=== PATIENT | female | born 1945 | race American Indian/Alaskan Native ===

== ENCOUNTER 2017-05-05 21:24 | Inpatient (IN) | payer MEDICAID, MEDICARE ==
--- NOTE | 2017-05-05 22:22 | Emergency Department Report ---
HPI - General Chief Complaint: Recheck/Abnormal Lab/Rx Time Seen by Provider: 05/05/17 22:09 - HPI HPI: Room 25 The patient is 71-year-old female presenting with a chief complaint of hyponatremia. The patient is a resident at [facility] states she had blood drawn today and was later instructed that her sodium was low. Patient was subsequently sent to ED. Patient denies any new complaints but states she's had loose stools for the past week. Patient complains of chronic pain in her right side for over one year. Patient otherwise denies any other complaints. Paperwork accompanying the patient reveals she had blood drawn 10/2017 which resulted with a sodium of 118 mmol/liter Location: [See above] Duration: [See above] Quality: Hyponatremia Severity: 118 Modifying factors: [see above] Context: [see above] Mode of transportation: [not driving] ED Past Medical Hx - Past Medical History Hx Hypertension: Yes Hx CVA: Yes Hx Diabetes: Yes Hx GERD: Yes Hx Psychiatric Treatment: Yes (schizophrenia, depression) - Surgical History Past Surgical History?: No Additional Surgical History: Lumpectomy - Family History Family history: no significant - Social History Smoking Status: Never Smoker ED Review of Systems ROS: Stated complaint: LOW SODIUM Other details as noted in HPI Gastrointestinal: diarrhea Physical Exam - Physical Exam Vital Signs: Vital Signs 05/05/17 22:07 Temperature 97.6 F Pulse Rate 71 Blood Pressure 126/71 Physical Exam: GENERAL: The patient is well-developed well-nourished female lying on stretcher not appearing to be in acute distress. [] HEENT: Normocephalic. Atraumatic. Extraocular motions are intact. Patient has moist mucous membranes. NECK: Supple. Trachea midline CHEST/LUNGS: Clear to auscultation. There is no respiratory distress noted. HEART/CARDIOVASCULAR: Regular. There is no tachycardia. There is no gallop rub or murmur. ABDOMEN: Abdomen is soft, nontender. Patient has normal bowel sounds. There is no abdominal distention. SKIN: There is no rash. There is no edema. There is no diaphoresis. NEURO: The patient is awake, alert, and oriented. The patient is cooperative. The patient has normal speech MUSCULOSKELETAL: There is no evidence of acute injury. ED Course Vital Signs 05/05/17 22:07 Temperature 97.6 F Pulse Rate 71 Blood Pressure 126/71 ED Medical Decision Making - Lab Data Result diagrams: 05/05/17 22:45 05/05/17 22:45 Laboratory Tests 05/05/17 05/05/17 22:45 22:45 WBC 8.1 RBC 3.61 L Hgb 11.9 Hct 34.9 MCV 97 MCH 33 H MCHC 34 RDW 15.2 Plt Count 208 Lymph % (Auto) 25.8 [place] % (Auto) 10.5 H Eos % (Auto) 0.5 Baso % (Auto) 0.9 Lymph # 2.1 [place] # 0.9 H Eos # 0.0 Baso # 0.1 Seg Neutrophils % 62.3 Seg Neutrophils # 5.1 Sodium 122 L Potassium 4.2 Chloride 79.0 L Carbon Dioxide 26 Anion Gap 21 BUN 13 Creatinine 1.0 Estimated GFR > 60 BUN/Creatinine Ratio 13 Glucose 92 Calcium 9.2 Total Bilirubin 0.20 AST 12 ALT 7 Alkaline Phosphatase 58 Total Protein 7.1 Albumin 3.9 Albumin/Globulin Ratio 1.2 - EKG Data -: EKG Interpreted by Mo EKG shows normal: sinus rhythm Rate: normal - EKG Data When compared to previous EKG there are: previous EKG unavailable Interpretation: other (no ischemic changes seen) - Differential Diagnosis hyponatremia Critical care attestation.: If time is entered above; I have spent that time in minutes in the direct care of this critically ill patient, excluding procedure time. ED Disposition Clinical Impression: Hyponatremia Disposition: OP ADMIT IP TO THIS HOSP Is pt being admited?: Yes Does the pt Need Aspirin: No Condition: Fair Referrals: PRIMARY CARE,MD [Primary Care Provider] - 3-5 Days Time of Disposition: 00:02 (hospitalist paged (Dr Weems))
[2017-05-05 23:15] LABS: Basophils # (Auto) 0.1 K/mm3 (0.0-0.1); Basophils % (Auto) 0.9 % (0.0-1.8); Eosinophils % (Auto) 0.5 % (0.0-4.3); Hematocrit 34.9 % (30.3-42.9); Hemoglobin 11.9 gm/dl (10.1-14.3); Lymphocytes # (Auto) 2.1 K/mm3 (1.2-5.4); Lymphocytes % (Auto) 25.8 % (13.4-35.0); Mean Corpuscular HGB Conc 34 % (30-34); Mean Corpuscular Hemoglobin 33 pg (28-32); Mean Corpuscular Volume 97 fl (79-97); Monocytes # (Auto) 0.9 K/mm3 (0.0-0.8); Monocytes % (Auto) 10.5 % (0.0-7.3); Platelet Count 208 K/mm3 (140-440); Red Blood Count 3.61 M/mm3 (3.65-5.03); Red Cell Distribution Width 15.2 % (13.2-15.2)
[2017-05-05 23:25] LABS: Alanine Aminotransferase 7 units/L (7-56); Albumin 3.9 g/dL (3.9-5); BUN/Creatinine Ratio 13; Blood Urea Nitrogen 13 mg/dL (7-17); Calcium 9.2 mg/dL (8.4-10.2); Hemolysis Index 11
[2017-05-06] MEDS ORDERED: NACL 0.9% 1000 ML 1,000 ML IV ONE
[2017-05-06 01:03] LABS: Bilirubin,Urine NEG (Negative); Blood,Urine NEG (Negative); Color,Urine Yellow (Yellow); Hyaline Casts,Urine 1 /LPF; Nitrite,Urine NEG (Negative); Protein,Urine <15 mg/dL mg/dL (Negative); WBC,Urine < 1.0 /HPF (0.0-6.0)
--- NOTE | 2017-05-06 02:45 | History and Physical Report ---
History of Present Illness Date of examination: 05/06/17 Date of admission: 05/06/17 00:21 Chief complaint: My sodium level is low History of present illness: 71-year-old -[place] female with past medical history significant for hypertension, diabetes mellitus, schizophrenia presented [facility] further complaints of hyponatremia. Patient didn't have any complaints. Blood work was done today and her sodium level was found to be 118 and then to [facility] ER. Patient denied nausea, vomiting, but admits that she had one episode of loose stool this morning. Patient denied drinking too much water. Patient denied chest pain, shortness of breath, fever, chills, palpitation. REVIEW OF SYSTEMS: GENERAL: no weight change, no fatigue, no fever HEAD: no head ache EYES: no blurry vision, no acute visual loss EARS: no hearing loss, no discharge, no earache NOSE: no stuffiness, no sneezing, no discharge MOUTH, THROAT AND NECK: no bleeding gums, no sore throat, no swollen neck CARDIAC: no palpitations, no dyspnea on exertion, no orthopnea, no PND, no edema , no chest pain RESPIRATORY: no shortness of breath, no wheeze, no cough, no sputum, no hemoptysis, no asthma GI: no decreased appetite, no nausea, no vomiting, no dysphagia, no diarrhea, no constipation, no abdominal pain URINARY: no change in frequency, no urgency, no polyuria, no hematuria, no incontinence MUSCULOSKELETAL: no muscle weakness, no pain, no joint stiffness NEUROLOGIC: no loss of sensation/numbness, no tingling, no tremors, no weakness/ paralysis HEMATOLOGIC: no anemia, no easy bruising SKIN: no rashes ENDOCRINE: no heat/cold intolerance, no polyuria, no polydipsia, no thyroid problems, + diabetes PSYCHIATRIC: no anxiety, no depression, no suicidal ideations Past History Past Medical History: diabetes, hypertension, other (schizophrenia) Past Surgical History: Other (lumpectomy, breast) Social history: full code. denies: smoking, alcohol abuse, prescription drug abuse, IV drug use Family history: no significant family history Medications and Allergies Allergies Allergy/AdvReac Type Severity Reaction Status Date / Time haloperidol [From Haldol] Allergy Unknown Verified 05/25/16 11:00 haloperidol lactate Allergy Unknown Verified 05/25/16 11:00 [From Haldol] Penicillins Allergy Unknown Verified 05/25/16 11:00 Active Meds: Active Medications Sodium Chloride (Nacl 0.9% 1000 Ml) 1,000 mls @ 125 mls/hr IV ONCE ONE Stop: 05/06/17 07:59 Last Admin: 05/06/17 00:10 Dose: 125 mls/hr Exam - Physical Exam Narrative exam: Not in cardiopulmonary distress. The patient appeared well nourished and normally developed. BMI in the chart is inaccurate. Vital signs as documented. Head exam is unremarkable. No scleral icterus . Neck is without jugular venous distension, thyromegaly, or carotid bruits. Lungs are clear to auscultation. Cardiac exam reveals regular rate and Rhythm. First and second heart sounds normal. No murmurs, rubs or gallops. Abdominal exam reveals normal bowel sounds, no masses, no organomegaly and no aortic enlargement. Extremities are nonedematous and both femoral and pedal pulses are normal. HAND UMBRELLA TIPPER: Alert and oriented 3. No focal weakness. - Constitutional Vitals: Temp Pulse Resp BP Pulse Ox 97.6 F 71 126/71 05/05/17 22:07 05/05/17 22:07 05/05/17 22:07 Results - Labs CBC & Chem 7: 05/05/17 22:45 05/05/17 22:45 Labs: Laboratory Last Values WBC 8.1 K/mm3 (4.5-11.0) 05/05/17 22:45 RBC 3.61 M/mm3 (3.65-5.03) L 05/05/17 22:45 Hgb 11.9 gm/dl (10.1-14.3) 05/05/17 22:45 Hct 34.9 % (30.3-42.9) 05/05/17 22:45 MCV 97 fl (79-97) 05/05/17 22:45 MCH 33 pg (28-32) H 05/05/17 22:45 MCHC 34 % (30-34) 05/05/17 22:45 RDW 15.2 % (13.2-15.2) 05/05/17 22:45 Plt Count 208 K/mm3 (140-440) 05/05/17 22:45 Lymph % (Auto) 25.8 % (13.4-35.0) 05/05/17 22:45 [place] % (Auto) 10.5 % (0.0-7.3) H 05/05/17 22:45 Eos % (Auto) 0.5 % (0.0-4.3) 05/05/17 22:45 Baso % (Auto) 0.9 % (0.0-1.8) 05/05/17 22:45 Lymph # 2.1 K/mm3 (1.2-5.4) 05/05/17 22:45 [place] # 0.9 K/mm3 (0.0-0.8) H 05/05/17 22:45 Eos # 0.0 K/mm3 (0.0-0.4) 05/05/17 22:45 Baso # 0.1 K/mm3 (0.0-0.1) 05/05/17 22:45 Seg Neutrophils % 62.3 % (40.0-70.0) 05/05/17 22:45 Seg Neutrophils # 5.1 K/mm3 (1.8-7.7) 05/05/17 22:45 Sodium 122 mmol/L (137-145) L 05/05/17 22:45 Potassium 4.2 mmol/L (3.6-5.0) 05/05/17 22:45 Chloride 79.0 mmol/L (98-107) L 05/05/17 22:45 Carbon Dioxide 26 mmol/L (22-30) 05/05/17 22:45 Anion Gap 21 mmol/L 05/05/17 22:45 BUN 13 mg/dL (7-17) 05/05/17 22:45 Creatinine 1.0 mg/dL (0.7-1.2) 05/05/17 22:45 Estimated GFR > 60 ml/min 05/05/17 22:45 BUN/Creatinine Ratio 13 % 05/05/17 22:45 Glucose 92 mg/dL (65-100) 05/05/17 22:45 Calcium 9.2 mg/dL (8.4-10.2) 05/05/17 22:45 Total Bilirubin 0.20 mg/dL (0.1-1.2) 05/05/17 22:45 AST 12 units/L (5-40) 05/05/17 22:45 ALT 7 units/L (7-56) 05/05/17 22:45 Alkaline Phosphatase 58 units/L (35-129) 05/05/17 22:45 Total Protein 7.1 g/dL (6.3-8.2) 05/05/17 22:45 Albumin 3.9 g/dL (3.9-5) 05/05/17 22:45 Albumin/Globulin Ratio 1.2 % 05/05/17 22:45 Urine Color Yellow (Yellow) 05/05/17 23:56 Urine Turbidity Clear (Clear) 05/05/17 23:56 Urine pH 6.0 (5.0-7.0) 05/05/17 23:56 Ur Specific [place] 1.012 (1.003-1.030) 05/05/17 23:56 Urine Protein <15 mg/dl mg/dL (Negative) 05/05/17 23:56 Urine Glucose (UA) Neg mg/dL (Negative) 05/05/17 23:56 Urine Ketones Neg mg/dL (Negative) 05/05/17 23:56 Urine Blood Neg (Negative) 05/05/17 23:56 Urine Nitrite Neg (Negative) 05/05/17 23:56 Urine Bilirubin Neg (Negative) 05/05/17 23:56 Urine Urobilinogen 2.0 mg/dL (<2.0) 05/05/17 23:56 Ur Leukocyte Esterase Neg (Negative) 05/05/17 23:56 Urine WBC (Auto) < 1.0 /HPF (0.0-6.0) 05/05/17 23:56 Urine RBC (Auto) 2.0 /HPF (0.0-6.0) 05/05/17 23:56 U Epithel Cells (Auto) < 1.0 /HPF (0-13.0) 05/05/17 23:56 Hyaline Casts 1 /LPF 05/05/17 23:56 Assessment and Plan Assessment and plan: Hyponatremia - Causes unknown, IV normal saline, nephrology consulted and recommended to repeat BMP, magnesium and phosphorous in the morning - Patient is asymptomatic Diabetes mellitus type 2 - Patient's blood sugar is well controlled without medications Hypertension controlled Schizophrenia - Patient's medications was not reconciled because of medications are not in the chart and I called the nurse to put in. DVT prophylaxis - Heparin Disposition - Admit to medical floor Advance Directives: Yes VTE prophylaxis?: Chemical Plan of care discussed with patient/family: Yes
[2017-05-06 05:11] LABS: BUN/Creatinine Ratio 13; Blood Urea Nitrogen 12 mg/dL (7-17); Calcium 8.9 mg/dL (8.4-10.2); Hemolysis Index 19
--- NOTE | 2017-05-06 08:47 | Consultation ---
History of Present Illness - Reason for Consult Consult date: 05/06/17 hyponatremia - History of Present Illness The patient is a 71-year-old AAF with past medical history significant for Hypertension, Type 2 diabetes mellitus, Obesity and Schizophrenia presented from [facility] for further evaluation of Hyponatremia. Blood work was done yesterday and her sodium level was found to be 118. Initial Sodium level was 122 inthe ER. Patient denies any h/o N, V, dizziness, CP or SOB. Patient denied drinking too much water. Patient was taking HCTZ at the [place]. She was treated for hyponatremia about a year ago. Past History Past Medical History: diabetes, hypertension, other (schizophrenia) Past Surgical History: Other (lumpectomy, breast) Social history: full code. denies: smoking, alcohol abuse, prescription drug abuse, IV drug use Family history: no significant family history Medications and Allergies Allergies Allergy/AdvReac Type Severity Reaction Status Date / Time haloperidol [From Haldol] Allergy Unknown Verified 05/25/16 11:00 haloperidol lactate Allergy Unknown Verified 05/25/16 11:00 [From Haldol] Penicillins Allergy Unknown Verified 05/25/16 11:00 Home Medications Medication Instructions Recorded Confirmed Last Taken Type Omeprazole Magnesium 20 mg PO HS 05/06/17 05/06/17 Unknown History Pravastatin Sodium [Pravachol] 40 mg PO HS 05/06/17 05/06/17 Unknown History Sennosides [Senna] 8.6 mg PO QHS 05/06/17 05/06/17 Unknown History Sertraline [Zoloft] 50 mg PO DAILY 05/06/17 05/06/17 Unknown History traMADol [Ultram] 50 mg PO PRN 05/06/17 05/06/17 Unknown History Active Meds: Active Medications Heparin Sodium (Porcine) (Heparin) 5,000 unit SUB-Q Q12HR DARLINE Hydralazine HCl (Apresoline) 5 mg IV Q30MIN PRN PRN Reason: Hypertension Dextrose/Sodium Chloride (D5ns) 1,000 mls @ 75 mls/hr IV DIRECT DARLINE Pantoprazole Sodium (Protonix) 40 mg IV QDAY DARLINE Review of Systems Constitutional: no weight loss, no weight gain, no fever, no chills, no anorexia Ears, nose, mouth and throat: no epistaxis Breasts: deferred Cardiovascular: high blood pressure, no chest pain, no orthopnea, no palpitations, no edema, no syncope, no lightheadedness, no shortness of breath, no leg edema Respiratory: no cough, no hemoptysis, no shortness of breath Gastrointestinal: no abdominal pain, no nausea, no vomiting, no melena Genitourinary Female: no dysuria, no hematuria Rectal: no bleeding Musculoskeletal: no redness of joints Integumentary: no rash, no sores, no wounds Neurological: no paralysis, no weakness, no seizures, no syncope, no tremors, no ataxia, no double vision, no loss of vision Psychiatric: no disorientation Endocrine: no excessive thirst, no polydipsia, no polyuria, no nocturia Hematologic/Lymphatic: no easy bleeding Exam - Vital Signs Vital signs: Vital Signs Pulse Resp Pulse Ox 93 H 25 H 97 05/05/17 22:01 05/05/17 22:01 05/05/17 22:01 - General Appearance General appearance: well-developed, well-nourished, appears stated age, obese, other (no distress) EENT: ATNC, PERRL, mucous membranes dry, hearing intact, vision intact Neck: Present: neck supple, trachea midline Respiratory: Clear to Ascultation Heart: regular, S1S2, no murmurs Gastrointestinal: Present: normoactive bowel sounds, obese. Absent: tenderness , distended Integumentary: no rash, warm and dry Neurologic: no focal deficit, no asterixis, alert and oriented x3 Musculoskeletal: Present: other (no edema) Psychiatric: mood/affect appropriate, cooperative Results - Lab Results 05/05/17 22:45 05/06/17 04:20 Most recent lab results Calcium 8.9 mg/dL (8.4-10.2) 05/06/17 04:20 Phosphorus 2.80 mg/dL (2.5-4.5) 05/06/17 04:20 Magnesium 1.20 mg/dL (1.7-2.3) L 05/06/17 04:20 Assessment and Plan 1. Hyponatremia: Hyponatremia likely secodnary to HCTZ. Continue IV NS. Monitor Sodium levels. Patient is also on Zoloft. 2. Hypomagnesemia: Replete Mg. 3. Hypertension. 4. Schizophrenia.
[2017-05-06] MEDS ORDERED: APRESOLINE IV PRN (09:00)
[2017-05-06] MEDS: HEPARIN SUB-Q SCH ×2 (09:23→22:35)
[2017-05-06] MEDS: D5NS 1,000 ML IV SCH (09:24)
[2017-05-06] MEDS ORDERED: MAGNESIUM SULFATE 4GM/100ML 4 GM/100 ML BAG IV ONE (10:00)
[2017-05-06] MEDS: PROTONIX IV SCH (10:17)
[2017-05-06] MEDS ORDERED: WATER FOR INJ (PF) 10 ML ONE (10:25)
--- NOTE | 2017-05-06 14:49 | Progress Note ---
Assessment and Plan Hyponatremia - likely from hypovolumia and low salt intake - cont IV fluid with d5NS, Na level 126 today - Patient is asymptomatic Diabetes mellitus type 2 - Patient's blood sugar is well controlled without medications - will place on SSI and will treat if BG >150 - ADa diet if pass the swallow study Hypertension controlled - cont home meds Schizophrenia - stable at baseline DVT prophylaxis - Heparin Disposition - back to SNF when stable Brief history: The patient is a 71-year-old AAF with past medical history significant for Hypertension, Type 2 diabetes mellitus, Obesity and Schizophrenia presented from [facility] for further evaluation of Hyponatremia. Blood work was done yesterday and her sodium level was found to be 118. Initial Sodium level was 122 inthe ER. Hospitalist Physical exam: GENERAL: well-developed morbidly obese -[place] female lying on bed appeared to be in no discomfort. HEENT: Normocephalic. Atraumatic. No conjunctival congestion or icterus. Patient has moist mucous membranes. NECK: Supple. Trachea midline. CHEST/LUNGS: Clear to auscultated bilaterally, breathing nonlabored. No wheezes crackles or rhonchi. HEART/CARDIOVASCULAR: Regular in rate and rhythm. S1 and S2 positive. ABDOMEN: Abdomen is soft, nontender. Patient has normal bowel sounds. SKIN: There is no rash. Warm and dry. NEURO: No focal motor deficit. Follows command. MUSCULOSKELETAL: No joint effusion or tenderness. EXTRIMITY: No edema, no cyanosis or clubbing. PSYCH: Cooperative. Subjective Date of service: 05/06/17 Interval history: Patient seen and examined. Medical records and medication list reviewed. No acute event overnight noted by the RN. Patient denies any chest pain or difficulty breathing. Patient is tolerating diet. Discussed plan of care at bedside with patient. Objective - Constitutional Vitals: Vital Signs - 12hr 05/06/17 05/06/17 05/06/17 03:27 04:15 07:57 Temperature 98.2 F 98.3 F Pulse Rate 69 Respiratory 18 18 18 Rate Blood Pressure 158/64 Blood Pressure 147/75 [Left] O2 Sat by Pulse 98 100 Oximetry 05/06/17 12:53 Temperature 98.5 F Pulse Rate 71 Respiratory 20 Rate Blood Pressure Blood Pressure 130/78 [Left] O2 Sat by Pulse 99 Oximetry - Labs CBC & Chem 7: 05/05/17 22:45 05/08/17 03:17 Labs: Abnormal lab results 05/05/17 05/05/17 05/06/17 Range/Units 22:45 22:45 04:20 RBC 3.61 L (3.65-5.03) M/mm3 MCH 33 H (28-32) pg [place] % (Auto) 10.5 H (0.0-7.3) % [place] # 0.9 H (0.0-0.8) K/mm3 Sodium 122 L 123 L (137-145) mmol/L Chloride 79.0 L 80.9 L (98-107) mmol/L POC Glucose (70-105) Magnesium 1.20 L (1.7-2.3) mg/dL 05/06/17 Range/Units 11:57 RBC (3.65-5.03) M/mm3 MCH (28-32) pg [place] % (Auto) (0.0-7.3) % [place] # (0.0-0.8) K/mm3 Sodium (137-145) mmol/L Chloride (98-107) mmol/L POC Glucose 125 H (70-105) Magnesium (1.7-2.3) mg/dL
[2017-05-06 15:26] LABS: BUN/Creatinine Ratio 10; Blood Urea Nitrogen 8 mg/dL (7-17); Calcium 9.2 mg/dL (8.4-10.2); Hemolysis Index 4
[2017-05-06] MEDS ORDERED: CEPHULAC PO ONE (20:22)
[2017-05-06] MEDS: DILAUDID IV PRN (22:35)
[2017-05-06] MEDS: ZOFRAN IV PRN (22:35)
[2017-05-07 05:47] LABS: Alanine Aminotransferase 7 units/L (7-56); Albumin 3.8 g/dL (3.9-5); BUN/Creatinine Ratio 10; Blood Urea Nitrogen 9 mg/dL (7-17); Calcium 9.1 mg/dL (8.4-10.2); Hemolysis Index 17
--- NOTE | 2017-05-07 09:46 | Progress Note ---
Assessment and Plan 1. Hyponatremia: Hyponatremia likely secodnary to HCTZ. sodium level has improved. Continue IV fluids. Monitor Sodium level. Avoid HCTZ. 2. Hypomagnesemia: Improved. 3. Hypertension. 4. Schizophrenia. Subjective Date of service: 05/07/17 Interval history: Patient is doing ok. Objective - Vital Signs Vital signs: Vital Signs - 12hr 05/06/17 05/06/17 05/07/17 22:00 22:35 04:21 Temperature 98.7 F 98.9 F Pulse Rate 74 62 Respiratory 20 20 18 Rate Blood Pressure 139/66 Blood Pressure 148/72 [Left] O2 Sat by Pulse 94 94 Oximetry 05/07/17 05/07/17 07:33 08:43 Temperature 97.5 F L Pulse Rate 67 Respiratory 20 20 Rate Blood Pressure 137/62 Blood Pressure [Left] O2 Sat by Pulse 97 Oximetry - General Appearance General appearance: well-developed, well-nourished, appears stated age, obese, other (no distress) EENT: ATNC, PERRL, hearing intact Neck: supple Respiratory: Present: Clear to Ascultation Cardiology: regular, S1S2, no murmurs Gastrointestinal: normoactive bowel sounds, no tenderness, no distended, obese Integumentary: no rash, warm and dry Neurologic: no focal deficit, no asterixis Musculoskeletal: other (no edema) Psychiatric: mood/affect appropriate, cooperative - Lab 05/05/17 22:45 05/07/17 04:35 Most recent lab results Calcium 9.1 mg/dL (8.4-10.2) 05/07/17 04:35 Phosphorus 2.80 mg/dL (2.5-4.5) 05/06/17 04:20 Magnesium 2.20 mg/dL (1.7-2.3) 05/07/17 04:35
[2017-05-07] MEDS: PROTONIX IV SCH (10:33)
[2017-05-07] MEDS: HEPARIN SUB-Q SCH ×2 (10:34→22:21)
[2017-05-07] MEDS: D5NS 1,000 ML IV SCH (12:51)
--- NOTE | 2017-05-07 15:12 | Progress Note ---
Assessment and Plan - Patient Problems (1) Hyponatremia Current Visit: Yes Status: Acute Plan to address problem: Hyponatremia has improved significantly with discontinuation of hydrochlorothiazide most likely etiology. Sodium is coming back to 1:30. If he continues improved tomorrow or discharge chem monitor electrolytes and mcc. (2) Altered mental status Current Visit: No Status: Acute Plan to address problem: Well-known to me at baseline. Was most likely secondary to hyponatremia for her encephalopathy. But has resolved. 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 History Interval history: Patient states she feels better stronger all questions answered. Patient well known to myself from nursing facility. At baseline. Hospitalist Physical - Constitutional Vitals: Temp Pulse Resp BP Pulse Ox 97.5 F L 67 20 137/62 97 05/07/17 07:33 05/07/17 07:33 05/07/17 08:43 05/07/17 07:33 05/07/17 07:33 General appearance: Present: no acute distress - EENT Eyes: Present: PERRL, EOM intact ENT: hearing intact, clear oral mucosa - Neck Neck: Present: supple, normal ROM - Respiratory Respiratory: bilateral: CTA - Cardiovascular Rhythm: regular Heart Sounds: Present: S1 & S2 - Extremities Extremities: no ischemia, pulses intact, pulses symmetrical, No edema Peripheral Pulses: within normal limits - Abdominal General gastrointestinal: soft, non-tender, non-distended, other (obese) - Psychiatric Psychiatric: intact judgment & insight, cooperative - Neurologic Neurologic: CNII-XII intact Results - Labs CBC & Chem 7: 05/05/17 22:45 05/07/17 04:35 Labs: Laboratory Last Values WBC 8.1 K/mm3 (4.5-11.0) 05/05/17 22:45 RBC 3.61 M/mm3 (3.65-5.03) L 05/05/17 22:45 Hgb 11.9 gm/dl (10.1-14.3) 05/05/17 22:45 Hct 34.9 % (30.3-42.9) 05/05/17 22:45 MCV 97 fl (79-97) 05/05/17 22:45 MCH 33 pg (28-32) H 05/05/17 22:45 MCHC 34 % (30-34) 05/05/17 22:45 RDW 15.2 % (13.2-15.2) 05/05/17 22:45 Plt Count 208 K/mm3 (140-440) 05/05/17 22:45 Lymph % (Auto) 25.8 % (13.4-35.0) 05/05/17 22:45 [place] % (Auto) 10.5 % (0.0-7.3) H 05/05/17 22:45 Eos % (Auto) 0.5 % (0.0-4.3) 05/05/17 22:45 Baso % (Auto) 0.9 % (0.0-1.8) 05/05/17 22:45 Lymph # 2.1 K/mm3 (1.2-5.4) 05/05/17 22:45 [place] # 0.9 K/mm3 (0.0-0.8) H 05/05/17 22:45 Eos # 0.0 K/mm3 (0.0-0.4) 05/05/17 22:45 Baso # 0.1 K/mm3 (0.0-0.1) 05/05/17 22:45 Seg Neutrophils % 62.3 % (40.0-70.0) 05/05/17 22:45 Seg Neutrophils # 5.1 K/mm3 (1.8-7.7) 05/05/17 22:45 Sodium 130 mmol/L (137-145) L 05/07/17 04:35 Potassium 4.8 mmol/L (3.6-5.0) 05/07/17 04:35 Chloride 90.4 mmol/L (98-107) L 05/07/17 04:35 Carbon Dioxide 24 mmol/L (22-30) 05/07/17 04:35 Anion Gap 20 mmol/L 05/07/17 04:35 BUN 9 mg/dL (7-17) 05/07/17 04:35 Creatinine 0.9 mg/dL (0.7-1.2) 05/07/17 04:35 Estimated GFR > 60 ml/min 05/07/17 04:35 BUN/Creatinine Ratio 10 % 05/07/17 04:35 Glucose 140 mg/dL (65-100) H 05/07/17 04:35 POC Glucose 153 (70-105) H 05/07/17 12:24 Uric Acid 4.0 mg/dL (3.5-7.6) 05/07/17 04:35 Calcium 9.1 mg/dL (8.4-10.2) 05/07/17 04:35 Phosphorus 2.80 mg/dL (2.5-4.5) 05/06/17 04:20 Magnesium 2.20 mg/dL (1.7-2.3) 05/07/17 04:35 Total Bilirubin 0.30 mg/dL (0.1-1.2) 05/07/17 04:35 AST 10 units/L (5-40) 05/07/17 04:35 ALT 7 units/L (7-56) 05/07/17 04:35 Alkaline Phosphatase 54 units/L (35-129) 05/07/17 04:35 Total Protein 6.8 g/dL (6.3-8.2) 05/07/17 04:35 Albumin 3.8 g/dL (3.9-5) L 05/07/17 04:35 Albumin/Globulin Ratio 1.3 % 05/07/17 04:35 TSH 1.630 mlU/mL (0.270-4.200) 05/06/17 08:21 Free T4 1.34 ng/dL (0.76-1.46) 05/06/17 08:14 Urine Color Yellow (Yellow) 05/05/17 23:56 Urine Turbidity Clear (Clear) 05/05/17 23:56 Urine pH 6.0 (5.0-7.0) 05/05/17 23:56 Ur Specific [place] 1.012 (1.003-1.030) 05/05/17 23:56 Urine Protein <15 mg/dl mg/dL (Negative) 05/05/17 23:56 Urine Glucose (UA) Neg mg/dL (Negative) 05/05/17 23:56 Urine Ketones Neg mg/dL (Negative) 05/05/17 23:56 Urine Blood Neg (Negative) 05/05/17 23:56 Urine Nitrite Neg (Negative) 05/05/17 23:56 Urine Bilirubin Neg (Negative) 05/05/17 23:56 Urine Urobilinogen 2.0 mg/dL (<2.0) 05/05/17 23:56 Ur Leukocyte Esterase Neg (Negative) 05/05/17 23:56 Urine WBC (Auto) < 1.0 /HPF (0.0-6.0) 05/05/17 23:56 Urine RBC (Auto) 2.0 /HPF (0.0-6.0) 05/05/17 23:56 U Epithel Cells (Auto) < 1.0 /HPF (0-13.0) 05/05/17 23:56 Hyaline Casts 1 /LPF 05/05/17 23:56
--- NOTE | 2017-05-07 17:15 | Progress Note ---
Subjective Date of service: 05/07/17 Objective - Constitutional Vitals: Vital Signs - 12hr 05/07/17 05/07/17 07:33 08:43 Temperature 97.5 F L Pulse Rate 67 Respiratory 20 20 Rate Blood Pressure 137/62 O2 Sat by Pulse 97 Oximetry - Labs CBC & Chem 7: 05/05/17 22:45 05/07/17 04:35 Labs: Abnormal lab results 05/06/17 05/06/17 05/07/17 Range/Units 16:46 22:06 04:35 Sodium 130 L (137-145) mmol/L Chloride 90.4 L (98-107) mmol/L Glucose 140 H (65-100) mg/dL POC Glucose 114 H 150 H (70-105) Albumin 3.8 L (3.9-5) g/dL 05/07/17 05/07/17 Range/Units 07:30 12:24 Sodium (137-145) mmol/L Chloride (98-107) mmol/L Glucose (65-100) mg/dL POC Glucose 157 H 153 H (70-105) Albumin (3.9-5) g/dL
--- NOTE | 2017-05-07 17:58 | Progress Note ---
Assessment and Plan Hyponatremia - likely from hypovolumia and low salt intake - cont IV normal saline, Na level 130 today - Patient is asymptomatic Diabetes mellitus type 2 - Patient's blood sugar is well controlled without medications - will place on SSI Hypertension controlled - cont home meds Schizophrenia - stable at baseline DVT prophylaxis - Heparin Disposition - back to SNF when stable Brief history: The patient is a 71-year-old AAF with past medical history significant for Hypertension, Type 2 diabetes mellitus, Obesity and Schizophrenia presented from [facility] for further evaluation of Hyponatremia. Blood work was done yesterday and her sodium level was found to be 118. Initial Sodium level was 122 inthe ER. Hospitalist Physical exam: GENERAL: well-developed morbidly obese -[place]ic female lying on bed appeared to be in no discomfort. HEENT: Normocephalic. Atraumatic. No conjunctival congestion or icterus. Patient has moist mucous membranes. NECK: Supple. Trachea midline. CHEST/LUNGS: Clear to auscultated bilaterally, breathing nonlabored. No wheezes crackles or rhonchi. HEART/CARDIOVASCULAR: Regular in rate and rhythm. S1 and S2 positive. ABDOMEN: Abdomen is soft, nontender. Patient has normal bowel sounds. SKIN: There is no rash. Warm and dry. NEURO: No focal motor deficit. Follows command. MUSCULOSKELETAL: No joint effusion or tenderness. EXTRIMITY: No edema, no cyanosis or clubbing. PSYCH: Cooperative. Subjective Date of service: 05/07/17 Interval history: Patient seen and examined. Medical records and medication list reviewed. No acute event overnight noted by the RN. Patient denies any chest pain or difficulty breathing. Patient is tolerating diet. Discussed plan of care at bedside with patient. Objective - Constitutional Vitals: Vital Signs - 12hr 05/07/17 05/07/17 07:33 08:43 Temperature 97.5 F L Pulse Rate 67 Respiratory 20 20 Rate Blood Pressure 137/62 O2 Sat by Pulse 97 Oximetry - Labs CBC & Chem 7: 05/05/17 22:45 05/08/17 03:17 Labs: Abnormal lab results 05/06/17 05/07/17 05/07/17 Range/Units 22:06 04:35 07:30 Sodium 130 L (137-145) mmol/L Chloride 90.4 L (98-107) mmol/L Glucose 140 H (65-100) mg/dL POC Glucose 150 H 157 H (70-105) Albumin 3.8 L (3.9-5) g/dL 05/07/17 Range/Units 12:24 Sodium (137-145) mmol/L Chloride (98-107) mmol/L Glucose (65-100) mg/dL POC Glucose 153 H (70-105) Albumin (3.9-5) g/dL
[2017-05-07] MEDS ORDERED: NACL 0.9% 1000 ML 1,000 ML IV SCH (18:30)
[2017-05-07] MEDS: DILAUDID IV PRN (23:14)
[2017-05-07] MEDS: ZOFRAN IV PRN (23:14)
[2017-05-08 04:31] LABS: BUN/Creatinine Ratio 8; Blood Urea Nitrogen 6 mg/dL (7-17); Calcium 8.7 mg/dL (8.4-10.2); Hemolysis Index 28
--- NOTE | 2017-05-08 08:29 | Progress Note ---
Assessment and Plan 1. Hyponatremia: Hyponatremia likely secodnary to HCTZ. Sodium level has improved. Carter top IV fluids. Monitor Sodium level. Avoid HCTZ. 2. Hypomagnesemia: Improved. 3. Hypertension. 4. Schizophrenia. Subjective Date of service: 05/08/17 Interval history: Patient is doing ok. Objective - Vital Signs Vital signs: Vital Signs - 12hr 05/07/17 05/08/17 22:00 05:33 Temperature 98.4 F Pulse Rate 70 Respiratory 18 18 Rate Blood Pressure 156/78 - General Appearance General appearance: well-developed, well-nourished, appears stated age, obese, other (no distress) EENT: ATNC, PERRL, hearing intact, vision intact Neck: supple Respiratory: Present: Clear to Ascultation Cardiology: regular, S1S2, no murmurs Gastrointestinal: normoactive bowel sounds, no tenderness, no distended, obese Integumentary: no rash, warm and dry Neurologic: no focal deficit, no asterixis Musculoskeletal: other (no edema) Psychiatric: mood/affect appropriate, cooperative - Lab 05/05/17 22:45 05/08/17 03:17 Most recent lab results Calcium 8.7 mg/dL (8.4-10.2) 05/08/17 03:17 Phosphorus 3.40 mg/dL (2.5-4.5) 05/08/17 03:17 Magnesium 2.20 mg/dL (1.7-2.3) 05/07/17 04:35
[2017-05-08 09:04] LABS: BUN/Creatinine Ratio 9; Blood Urea Nitrogen 6 mg/dL (7-17); Calcium 8.7 mg/dL (8.4-10.2); Hemolysis Index 52
[2017-05-08] MEDS: HEPARIN SUB-Q SCH ×2 (09:21→23:22)
[2017-05-08] MEDS: PROTONIX IV SCH (09:21)
--- NOTE | 2017-05-08 10:45 | Discharge Summary ---
Providers - Providers Date of Admission: 05/06/17 00:21 Date of discharge: 05/09/17 Attending physician: BLAZE MORALES 05/06/17 00:27 Consult to Physician [CONS] Urgent Consulting Provider: GERMAIN GORDON Reason For Exam: hyponatremia Place consult to:: Dr. Gordon Notified:: His number Phone number called:: his number Was contact made?: Yes If yes, spoke with:: Dr. Gordon Time called:: 00:22 Comment:: Dr. Marquez (er dr) spoke with Dr. Gordon 05/06/17 08:03 Speech Therapy Evaluation and Treat [CONS] Routine Reason For Exam: aspiration Primary care physician: ARSH DE SOUZA Hospitalization Condition: Fair Hospital course: Discharge Diagnosis and management Hyponatremia - likely from hypovolumia and low salt intake - cont IV normal saline, Na level 130 today - Patient is asymptomatic - hold HCTZ Diabetes mellitus type 2 - Patient's blood sugar is well controlled without medications - Placed on SSI as needed, goal BG 150-180 Hypertension - started on norvasc - avoid HCTZ Schizophrenia - stable at baseline - cont zoloft DVT prophylaxis - Heparin Disposition - back to SNF Brief history: The patient is a 71-year-old AAF with past medical history significant for Hypertension, Type 2 diabetes mellitus, Obesity and Schizophrenia presented from [facility] senior living for further evaluation of Hyponatremia. Blood work was done yesterday and her sodium level was found to be 118. Initial Sodium level was 122 inthe ER. Hospitalist Physical exam: GENERAL: well-developed morbidly obese -[place]ib[place] female lying on bed appeared to be in no discomfort. HEENT: Normocephalic. Atraumatic. No conjunctival congestion or icterus. Patient has moist mucous membranes. NECK: Supple. Trachea midline. CHEST/LUNGS: Clear to auscultated bilaterally, breathing nonlabored. No wheezes crackles or rhonchi. HEART/CARDIOVASCULAR: Regular in rate and rhythm. S1 and S2 positive. ABDOMEN: Abdomen is soft, nontender. Patient has normal bowel sounds. SKIN: There is no rash. Warm and dry. NEURO: No focal motor deficit. Follows command. MUSCULOSKELETAL: No joint effusion or tenderness. EXTRIMITY: No edema, no cyanosis or clubbing. PSYCH: Cooperative. Disposition: DC/TX-03 SNF [facility] Time spent for discharge: 32 minutes Core Measure Documentation - Palliative Care Palliative Care/ Comfort Measures: Not Applicable - Core Measures Any of the following diagnoses?: none Exam - Constitutional Vitals: Temp Pulse Resp BP Pulse Ox 99.0 F 69 20 191/78 98 05/08/17 07:54 05/08/17 07:55 05/08/17 07:54 05/08/17 07:54 05/08/17 07:55 Plan Activity: up only with assistance Weight Bearing Status: Non-Weight Bearing Diet: low cholesterol Additional Instructions: repeat BMP in 2 days. F/u with inventory associate in one week Follow up with: PRIMARY CARE, [Referring] - 3-5 Days Prescriptions: amLODIPine [Norvasc] 10 mg PO QDAY #30 tablet
[2017-05-08] MEDS ORDERED: ULTRAM PO SCH (11:00)
[2017-05-08] MEDS: NORVASC PO SCH (12:02)
[2017-05-08] MEDS: ZOLOFT PO SCH (12:32)
[2017-05-08] MEDS ORDERED: ATIVAN IV ONE (20:30)
[2017-05-08] MEDS ORDERED: PRAVACHOL PO SCH (22:00)
[2017-05-09 06:01] LABS: BUN/Creatinine Ratio 11; Blood Urea Nitrogen 9 mg/dL (7-17); Calcium 9.3 mg/dL (8.4-10.2); Hemolysis Index 23
--- NOTE | 2017-05-09 08:01 | Progress Note ---
Assessment and Plan Hyponatremia - likely from hypovolumia and low salt intake - off IV fluid today, Na level improved - Patient is asymptomatic Diabetes mellitus type 2 - Patient's blood sugar is well controlled without medications - will cont on SSI and will treat if BG >150 - ADa diet Hypertension controlled - cont home meds Schizophrenia - stable at baseline DVT prophylaxis - Heparin Disposition - back to SNF tomorrow Brief history: The patient is a 71-year-old AAF with past medical history significant for Hypertension, Type 2 diabetes mellitus, Obesity and Schizophrenia presented from [facility] for further evaluation of Hyponatremia. Blood work was done yesterday and her sodium level was found to be 118. Initial Sodium level was 122 inthe ER. Hospitalist Physical exam: GENERAL: well-developed morbidly obese -[place]ian female lying on bed appeared to be in no discomfort. HEENT: Normocephalic. Atraumatic. No conjunctival congestion or icterus. Patient has moist mucous membranes. NECK: Supple. Trachea midline. CHEST/LUNGS: Clear to auscultated bilaterally, breathing nonlabored. No wheezes crackles or rhonchi. HEART/CARDIOVASCULAR: Regular in rate and rhythm. S1 and S2 positive. ABDOMEN: Abdomen is soft, nontender. Patient has normal bowel sounds. SKIN: There is no rash. Warm and dry. NEURO: No focal motor deficit. Follows command. MUSCULOSKELETAL: No joint effusion or tenderness. EXTRIMITY: No edema, no cyanosis or clubbing. PSYCH: Cooperative. Subjective Date of service: 05/08/17 Interval history: Patient seen and examined. Medical records and medication list reviewed. No acute event overnight noted by the RN. Patient denies any chest pain or difficulty breathing. Patient is tolerating diet. Discussed plan of care at bedside with patient. Objective - Constitutional Vitals: Vital Signs - 12hr 05/08/17 05/08/17 05/09/17 20:47 22:00 04:24 Temperature 98.7 F Pulse Rate 74 85 Respiratory 20 18 Rate Blood Pressure 165/69 Blood Pressure [Left] O2 Sat by Pulse 98 Oximetry 05/09/17 06:37 Temperature 98.5 F Pulse Rate Respiratory 16 Rate Blood Pressure Blood Pressure 169/87 [Left] O2 Sat by Pulse 98 Oximetry - Labs CBC & Chem 7: 05/05/17 22:45 05/09/17 04:58 Labs: Abnormal lab results 05/08/17 05/08/17 05/08/17 Range/Units 08:22 08:27 11:57 Sodium 129 L (137-145) mmol/L Chloride 92.6 L (98-107) mmol/L BUN 6 L (7-17) mg/dL Glucose 163 H (65-100) mg/dL POC Glucose 150 H 168 H (70-105) Magnesium (1.7-2.3) mg/dL 05/08/17 05/08/17 05/09/17 Range/Units 17:34 21:52 04:58 Sodium 128 L (137-145) mmol/L Chloride 88.7 L (98-107) mmol/L BUN (7-17) mg/dL Glucose 139 H (65-100) mg/dL POC Glucose 126 H 166 H (70-105) Magnesium 1.30 L (1.7-2.3) mg/dL 05/09/17 Range/Units 07:17 Sodium (137-145) mmol/L Chloride (98-107) mmol/L BUN (7-17) mg/dL Glucose (65-100) mg/dL POC Glucose 132 H (70-105) Magnesium (1.7-2.3) mg/dL
[2017-05-09] MEDS ORDERED: NACL 0.9% 500 ML 500 ML IV ONE (08:03)
[2017-05-09] MEDS: PROTONIX IV SCH (09:11)
[2017-05-09] MEDS: ZOLOFT PO SCH (09:15)
[2017-05-09] MEDS: HEPARIN SUB-Q SCH (09:16)
[2017-05-09] MEDS: NORVASC PO SCH (09:18)
[2017-05-09] MEDS ORDERED: MAGNESIUM SULFATE 4GM/100ML 4 GM/100 ML BAG IV ONE (09:41)
--- NOTE | 2017-05-09 09:41 | Progress Note ---
Assessment and Plan 1. Hyponatremia: Hyponatremia likely secondary to HCTZ. Sodium level has improved. Monitor Sodium level. Avoid HCTZ. 2. Hypomagnesemia: Replete Mg. 3. Hypertension. 4. Schizophrenia. Subjective Date of service: 05/09/17 Interval history: Patient is doing ok. Objective - Vital Signs Vital signs: Vital Signs - 12hr 05/08/17 05/09/17 05/09/17 22:00 04:24 06:37 Temperature 98.7 F 98.5 F Pulse Rate 85 Respiratory 20 18 16 Rate Blood Pressure 165/69 Blood Pressure 169/87 [Left] O2 Sat by Pulse 98 98 Oximetry 05/09/17 09:18 Temperature Pulse Rate 89 Respiratory Rate Blood Pressure 197/96 Blood Pressure [Left] O2 Sat by Pulse Oximetry - General Appearance General appearance: well-developed, well-nourished, appears stated age, obese, other (No distress) EENT: ATNC, PERRL, mucous membranes moist, hearing intact, vision intact Neck: supple Respiratory: Present: Clear to Ascultation Cardiology: regular, S1S2, no murmurs Gastrointestinal: normoactive bowel sounds, no tenderness, no distended Integumentary: no rash, warm and dry Neurologic: no focal deficit, no asterixis, alert and oriented x3 Musculoskeletal: other (no edema) Psychiatric: mood/affect appropriate, cooperative - Lab 05/05/17 22:45 05/09/17 04:58 Most recent lab results Calcium 9.3 mg/dL (8.4-10.2) 05/09/17 04:58 Phosphorus 3.40 mg/dL (2.5-4.5) 05/08/17 03:17 Magnesium 1.30 mg/dL (1.7-2.3) L 05/09/17 04:58
[2017-05-09 13:29] VITALS: BP 168/74
[2017-05-09 14:17] LABS: BUN/Creatinine Ratio 13; Blood Urea Nitrogen 9 mg/dL (7-17); Calcium 9.5 mg/dL (8.4-10.2); Hemolysis Index 6
[2017-05-09] MEDS ORDERED: MAGNESIUM SULFATE IV ONE (15:33)
[2017-05-09] MEDS ORDERED: MAGNESIUM SULFATE 1 GM in NACL 0.9% 50 ML IV ONE (18:00)
[2017-05-10] MEDS ORDERED: PROTONIX PO SCH (10:00)
== END 2017-05-09 18:50 | disposition home or self-care (01) | DRG 640 ==
LOC: ED 21:24 → 2B-ACE 05-06 00:21
PROVIDERS: ADMIT Internal Medicine; ATTEND Internal Medicine
DX: E87.1 Hypo-osmolality and hyponatremia (principal); G93.41 Metabolic encephalopathy; E11.9 Type 2 diabetes mellitus without complications; I10 Essential (primary) hypertension; F20.9 Schizophrenia, unspecified; Z88.0 Allergy status to penicillin; Z88.8 Allergy status to other drugs, medicaments and biological substances; Z86.73 Personal history of transient ischemic attack (TIA), and cerebral infarction without residual deficits; F32.9 Major depressive disorder, single episode, unspecified; K21.9 Gastro-esophageal reflux disease without esophagitis; E66.9 Obesity, unspecified; Z68.41 Body mass index [BMI] 40.0-44.9, adult; E83.42 Hypomagnesemia
CPT/HCPCS: 36415; 80048; 80053; 81001; 82962; 83735; 84100; 84439; 84443; 84550; 85025; 93005; 93010; 96360; 96361; A9270-GY; C9113; G8996-GN; G8997-GN; G8998-GN; J1170; J1644; J1815; J2060; J2405; J3475; J7030; J7040; J7042

== ENCOUNTER 2019-11-13 22:23 | Emergency (ER) | payer MEDICARE ==
--- NOTE | 2019-11-14 07:28 | Emergency Department Report ---
ED Abdominal Pain HPI - General Chief Complaint: Abdominal Pain Stated Complaint: GENERALIZED PAIN Time Seen by Provider: 11/14/19 06:26 Source: patient Mode of arrival: Ambulatory Limitations: No Limitations - History of Present Illness Initial Comments: 74-year-old female presents to ED with complaint of abdominal pain. Patient reports onset of lower abdominal pain 1 week ago. States it has been radiating to the back. She denies any nausea or vomiting. She reports urinary frequency. MD Complaint: abdominal pain -: week(s) (1) Location: suprapubic Radiation: back Migration to: no migration Severity: moderate Quality: aching Consistency: constant Improves With: nothing Worsens With: nothing Associated Symptoms: denies: nausea, vomiting, diarrhea, fever - Related Data Home Medications Medication Instructions Recorded Confirmed Last Taken Omeprazole 20 mg PO HS 05/06/17 05/06/17 Unknown Pravastatin Sodium [Pravachol] 40 mg PO HS 05/06/17 05/06/17 Unknown Sennosides [Senna] 8.6 mg PO QHS 05/06/17 05/06/17 Unknown Sertraline [Zoloft] 50 mg PO DAILY 05/06/17 05/06/17 Unknown traMADoL [Ultram 50 MG tab] 50 mg PO PRN 05/06/17 05/06/17 Unknown Previous Rx's Medication Instructions Recorded Last Taken Type amLODIPine 10 mg PO QDAY #30 tablet 05/08/17 Unknown Rx Dicyclomine [Bentyl] 20 mg PO QID PRN #20 tablet 11/14/19 Unknown Rx Allergies Allergy/AdvReac Type Severity Reaction Status Date / Time haloperidol [From Haldol] Allergy Unknown Verified 05/25/16 11:00 haloperidol lactate Allergy Unknown Verified 05/25/16 11:00 [From Haldol] Penicillins Allergy Unknown Verified 05/25/16 11:00 ED Review of Systems ROS: Stated complaint: GENERALIZED PAIN Other details as noted in HPI Comment: All other systems reviewed and negative Constitutional: denies: chills, fever Gastrointestinal: abdominal pain. denies: nausea, vomiting, diarrhea Genitourinary: frequency ED Past Medical Hx - Past Medical History Previous Medical History?: Yes Hx Hypertension: Yes Hx CVA: Yes (2013?) Hx Diabetes: Yes Hx GERD: Yes Hx Psychiatric Treatment: Yes (schizophrenia, depression) - Surgical History Additional Surgical History: R Lumpectomy ?yr-"it's been awhile" - Social History Smoking Status: Never Smoker Substance Use Type: None - Medications Home Medications: Home Medications Medication Instructions Recorded Confirmed Last Taken Type Omeprazole 20 mg PO HS 05/06/17 05/06/17 Unknown History Pravastatin Sodium [Pravachol] 40 mg PO HS 05/06/17 05/06/17 Unknown History Sennosides [Senna] 8.6 mg PO QHS 05/06/17 05/06/17 Unknown History Sertraline [Zoloft] 50 mg PO DAILY 05/06/17 05/06/17 Unknown History traMADoL [Ultram 50 MG tab] 50 mg PO PRN 05/06/17 05/06/17 Unknown History amLODIPine 10 mg PO QDAY #30 tablet 05/08/17 Unknown Rx Dicyclomine [Bentyl] 20 mg PO QID PRN #20 tablet 11/14/19 Unknown Rx ED Physical Exam - General Limitations: No Limitations General appearance: alert, in no apparent distress - Head Head exam: Present: atraumatic, normocephalic - Eye Eye exam: Present: normal appearance, EOMI - ENT ENT exam: Present: mucous membranes moist - Neck Neck exam: Present: normal inspection - Respiratory Respiratory exam: Present: normal lung sounds bilaterally. Absent: respiratory distress - Cardiovascular Cardiovascular Exam: Present: regular rate, normal rhythm - GI/Abdominal GI/Abdominal exam: Present: soft, tenderness (Mild suprapubic, LLQ, RLQ pain). Absent: distended - Extremities Exam Extremities exam: Present: normal inspection - Neurological Exam Neurological exam: Present: alert, oriented X3 - Psychiatric Psychiatric exam: Present: normal affect, normal mood - Skin Skin exam: Present: warm, dry, intact, normal color ED Course Vital Signs 11/13/19 11/14/19 11/14/19 23:31 08:00 08:31 Temperature 98.4 F 98.4 F Pulse Rate 68 70 92 H Respiratory 18 22 25 H Rate Blood Pressure 183/55 175/82 175/82 Blood Pressure 176/66 [Left] O2 Sat by Pulse 97 97 Oximetry 11/14/19 11/14/19 11/14/19 11:19 11:30 12:01 Temperature Pulse Rate 73 74 Respiratory 13 21 Rate Blood Pressure 186/80 181/77 175/80 Blood Pressure [Left] O2 Sat by Pulse 98 96 95 Oximetry 11/14/19 12:31 Temperature Pulse Rate Respiratory Rate Blood Pressure 196/86 Blood Pressure [Left] O2 Sat by Pulse 97 Oximetry ED Medical Decision Making - Lab Data Result diagrams: 11/14/19 07:46 11/14/19 07:46 - Radiology Data Radiology results: report reviewed, image reviewed - Medical Decision Making 74-year-old female with complaint of lower abdominal pain, radiating to the back x1 week. Patient is afebrile. Labs are unremarkable, including urine. CT abdomen pelvis shows no evidence of any acute abnormalities. Patient will be d ischarged at this time with prescriptions. Outpatient follow-up advised. Return precautions given. - Differential Diagnosis UTI, diverticulitis, bowel obstruction Critical care attestation.: If time is entered above; I have spent that time in minutes in the direct care of this critically ill patient, excluding procedure time. ED Disposition Clinical Impression: Abdominal pain Disposition: DC-01 TO HOME OR SELFCARE Is pt being admited?: No Condition: Stable Instructions: Abdominal Pain (ED) Prescriptions: Dicyclomine [Bentyl] 20 mg PO QID PRN #20 tablet PRN Reason: abdominal pain Referrals: PRIMARY CARE, [Primary Care Provider] - 3-5 Days Time of Disposition: 12:18
[2019-11-14 08:13] LABS: Basophils # (Auto) 0.1 K/mm3 (0.0-0.1); Basophils % (Auto) 0.8 % (0.0-1.8); Eosinophils # (Auto) 0.1 K/mm3 (0.0-0.4); Eosinophils % (Auto) 0.9 % (0.0-4.3); Hematocrit 37.6 % (30.3-42.9); Hemoglobin 12.8 gm/dl (10.1-14.3); Lymphocytes % (Auto) 26.1 % (13.4-35.0); Mean Corpuscular HGB Conc 34 % (30-34); Mean Corpuscular Volume 92 fl (79-97); Monocytes # (Auto) 0.8 K/mm3 (0.0-0.8); Monocytes % (Auto) 10.1 % (0.0-7.3); Platelet Count 263 K/mm3 (140-440); Red Blood Count 4.11 M/mm3 (3.65-5.03)
[2019-11-14 08:23] LABS: Alanine Aminotransferase 12 units/L (7-56); Albumin 4.2 g/dL (3.9-5); BUN/Creatinine Ratio 19; Blood Urea Nitrogen 19 mg/dL (7-17); Calcium 9.6 mg/dL (8.4-10.2); Hemolysis Index 20
[2019-11-14 08:27] LABS: Bilirubin,Direct < 0.2 mg/dL (0-0.2)
[2019-11-14 10:37] LABS: Bilirubin,Urine NEG (Negative); Blood,Urine NEG (Negative); Color,Urine Straw (Yellow); Protein,Urine <15 mg/dL mg/dL (Negative); Urobilinogen,Urine < 2.0 mg/dL (<2.0); WBC,Urine < 1.0 /HPF (0.0-6.0)
--- NOTE | 2019-11-14 12:12 | Cat Scan Report ---
CT ABDOMEN AND PELVIS WITH CONTRAST HISTORY: abdominal pain COMPARISON: None. TECHNIQUE: Axial CT images were obtained through the abdomen and pelvis after 100 cc of Omnipaque 300 intravenously. Sagittal and coronal reformatted images. All CT scans at this location are performed using CT dose reduction for ALARA by means of automated exposure control. FINDINGS: CT ABDOMEN: Lung Bases: Clear. Liver: No significant abnormality. Few tiny liver cysts are noted. Biliary: No significant abnormality. Spleen: No significant abnormality. Unenlarged. Pancreas: No significant abnormality. Adrenals: No significant abnormality. Kidneys: No significant abnormality. Lymphatics: No lymphadenopathy. Vasculature: No significant abnormality. Bowel/Peritoneum: There are numerous diverticula throughout the left hemicolon. No acute inflammatory changes are appreciated. No obstruction or obvious focal mass. No free fluid or free air. The append ix is not confidently identified. CT PELVIS: : The uterus is small in size or surgically absent. The adnexa are unremarkable. The bladder is mod erately distended but no wall abnormality or filling defect. Osseous Structures: Moderate to severe multilevel thoracolumbar spondylosis. No fracture or suspiciou s bony lesion. Additional Findings: None IMPRESSION: No acute process is identified in the abdomen or pelvis. Diverticulosis of the distal colon. Distended bladder. Advanced degenerative changes in the spine. Signer Name: Yamil Hooper Jr, MD Signed: 11/14/2019 12:07 PM Workstation Name: [id number]
[2019-11-14 13:11] VITALS: BP 196/86
== END 2019-11-14 14:35 | disposition home or self-care (01) ==
LOC: ED 22:23
DX: R10.30 Lower abdominal pain, unspecified (principal); I10 Essential (primary) hypertension; E11.9 Type 2 diabetes mellitus without complications; K21.9 Gastro-esophageal reflux disease without esophagitis; F20.9 Schizophrenia, unspecified; F32.9 Major depressive disorder, single episode, unspecified; Z79.899 Other long term (current) drug therapy; Z98.890 Other specified postprocedural states; Z88.0 Allergy status to penicillin; Z88.8 Allergy status to other drugs, medicaments and biological substances
CPT/HCPCS: 36415; 74177; 80048; 80076; 81001; 83690; 85025; 99284; Q9967

== ENCOUNTER 2020-02-18 16:05 | Emergency (ER) | payer MEDICARE ==
--- NOTE | 2020-02-18 16:38 | Event Note ---
ED Screening Note Date of service: 02/18/20 Time: 16:37 ED Screening Note: Fall 3 days ago. Reports hitting her head or losing consciousness. Reports pain to the right hip, bilateral knees, bilateral feet and right elbow This initial assessment/diagnostic orders/clinical plan/treatment(s) is/are subject to change based on patients health status, clinical progression and re- assessment by fellow clinical providers in the ED. Further treatment and workup at subsequent clinical providers discretion. Patient/guardian urged not to elope from the ED as their condition may be serious if not clinically assessed and managed. Initial orders include: X-ray, CT
--- NOTE | 2020-02-18 17:25 | XRay Report ---
BILATERAL KNEES 6 VIEWS INDICATION / CLINICAL INFORMATION: Bilateral knee pain after fall. COMPARISON: None available. FINDINGS: BONES and JOINT(S): No acute fracture or subluxation. Moderate tricompartmental osteoarthritis is see n bilaterally. SOFT TISSUES: No significant abnormality. ADDITIONAL FINDINGS: None. IMPRESSION: 1. No acute findings. 2. Moderate osteoarthritis of the knees. Signer Name: Jose Carlos Lange MD Signed: 02/18/2020 5:20 PM Workstation Name: [employer]
--- NOTE | 2020-02-18 17:32 | XRay Report ---
PELVIS ONE VIEW INDICATION / CLINICAL INFORMATION: Pelvic pain after fall. COMPARISON: CT abdomen and pelvis with contrast from 11/14/2019. FINDINGS: BONES and JOINT(S): No acute fracture or subluxation. Mild degenerative changes are noted along the p ubic symphysis and SI joints as well as lower lumbar spine. SOFT TISSUES: No significant abnormality. ADDITIONAL FINDINGS: None. IMPRESSION: 1. No acute findings. Signer Name: Jose Carlos Lange MD Signed: 02/18/2020 5:27 PM Workstation Name: [id number]
--- NOTE | 2020-02-18 17:33 | XRay Report ---
RIGHT ELBOW 3 VIEWS INDICATION / CLINICAL INFORMATION: Right elbow pain after fall. COMPARISON: None available. FINDINGS: BONES and JOINT(S): No acute fracture or subluxation. Mild osteoarthritis is seen medially with an ol ecranon enthesophyte. SOFT TISSUES: No significant abnormality. ADDITIONAL FINDINGS: None. IMPRESSION: 1. No acute findings. Signer Name: Jose Carlos Lange MD Signed: 02/18/2020 5:28 PM Workstation Name: [id number]
--- NOTE | 2020-02-18 17:37 | Cat Scan Report ---
NONENHANCED CT SCAN OF THE HEAD: INDICATION / CLINICAL INFORMATION: 74 years Female; fall, loc. TECHNIQUE: Routine CT head without contrast. All CT scans at this location are performed using CT dos e reduction for ALARA by means of automated exposure control. COMPARISON: CT scan of the head from 05/25/2016 FINDINGS: BRAIN / INTRACRANIAL CONTENTS: No intracranial sequela from the trauma; no scalp hematoma; no air-flu id level in the visualized portions of the paranasal sinuses No acute hemorrhage, mass effect, midline shift, hydrocephalus, or acute, large territorial infarct. No chronic infarct or focal atrophy. Normal brain volume and ventricular/sulcal size for age. No sign ificant white matter abnormality. CRANIOCERVICAL JUNCTION: No significant abnormality. ORBITS: No significant abnormality of visualized orbits. SINUSES / MASTOIDS: No significant abnormality of the visualized paranasal sinuses or mastoid air daquan ls. ADDITIONAL FINDINGS: Approximately 5 mm sized nodular lesions are seen bordering the superficial lobe of right parotid gland; reactive lymph nodes no change since the last CT scan IMPRESSION: No intracranial sequela from the trauma Signer Name: Andrzej Ugarte MD Signed: 02/18/2020 5:33 PM Workstation Name: [id number]
--- NOTE | 2020-02-18 18:03 | Emergency Department Report ---
ED Fall HPI - General Chief Complaint: Fall Stated Complaint: FALL/KNEE/ABD/HEADACHE Time Seen by Provider: 02/18/20 17:46 Source: patient Mode of arrival: Wheelchair - History of Present Illness Initial Comments: This is a pleasant 74-year-old female presents the emergency department for evaluation after a ground-level fall 2 days ago. Patient reports she hit her head and lost consciousness. She denies any prolonged downtime. She reports pain to the bilateral knees, right hip and head as well as the right elbow. She denies any other injuries. She reports this is a mechanical fall denies any syncope, presyncope, or any other associated symptoms. She denies any associated fever, chills, night sweats, dizziness, blurry vision, nausea,, diarrhea, chest pain or shortness of breath or any other associated symptoms. - Related Data Home Medications Medication Instructions Recorded Confirmed Last Taken Omeprazole 20 mg PO HS 05/06/17 05/06/17 Unknown Pravastatin Sodium [Pravachol] 40 mg PO HS 05/06/17 05/06/17 Unknown Sennosides [Senna] 8.6 mg PO QHS 05/06/17 05/06/17 Unknown Sertraline [Zoloft] 50 mg PO DAILY 05/06/17 05/06/17 Unknown traMADoL [Ultram 50 MG tab] 50 mg PO PRN 05/06/17 05/06/17 Unknown Previous Rx's Medication Instructions Recorded Last Taken Type amLODIPine 10 mg PO QDAY #30 tablet 05/08/17 Unknown Rx Dicyclomine [Bentyl] 20 mg PO QID PRN #20 tablet 11/14/19 Unknown Rx Acetaminophen [Mapap] 325 mg PO Q6HR #30 tablet 02/18/20 Unknown Rx Allergies Allergy/AdvReac Type Severity Reaction Status Date / Time haloperidol [From Haldol] Allergy Unknown Verified 05/25/16 11:00 haloperidol lactate Allergy Unknown Verified 05/25/16 11:00 [From Haldol] Penicillins Allergy Unknown Verified 05/25/16 11:00 ED Review of Systems ROS: Stated complaint: FALL/KNEE/ABD/HEADACHE Other details as noted in HPI Comment: All other systems reviewed and negative Constitutional: denies: chills, fever Eyes: denies: eye pain, eye discharge, vision change ENT: denies: ear pain, throat pain Respiratory: denies: cough, shortness of breath, wheezing Cardiovascular: denies: chest pain, palpitations Endocrine: no symptoms reported Gastrointestinal: denies: abdominal pain, nausea, diarrhea Genitourinary: denies: urgency, dysuria, discharge Musculoskeletal: as per HPI, arthralgia. denies: back pain, joint swelling Skin: denies: rash, lesions Neurological: as per HPI, headache. denies: weakness, paresthesias Psychiatric: denies: anxiety, depression Hematological/Lymphatic: denies: easy bleeding, easy bruising ED Past Medical Hx - Past Medical History Previous Medical History?: Yes Hx Hypertension: Yes Hx CVA: Yes (2013?) Hx Diabetes: Yes Hx GERD: Yes Hx Psychiatric Treatment: Yes (schizophrenia, depression) - Surgical History Past Surgical History?: Yes Additional Surgical History: R Lumpectomy ?yr-"it's been awhile" - Social History Smoking Status: Unknown if ever smoked Substance Use Type: None - Medications Home Medications: Home Medications Medication Instructions Recorded Confirmed Last Taken Type Omeprazole 20 mg PO HS 05/06/17 05/06/17 Unknown History Pravastatin Sodium [Pravachol] 40 mg PO HS 05/06/17 05/06/17 Unknown History Sennosides [Senna] 8.6 mg PO QHS 05/06/17 05/06/17 Unknown History Sertraline [Zoloft] 50 mg PO DAILY 05/06/17 05/06/17 Unknown History traMADoL [Ultram 50 MG tab] 50 mg PO PRN 05/06/17 05/06/17 Unknown History amLODIPine 10 mg PO QDAY #30 tablet 05/08/17 Unknown Rx Dicyclomine [Bentyl] 20 mg PO QID PRN #20 tablet 11/14/19 Unknown Rx Acetaminophen [Mapap] 325 mg PO Q6HR #30 tablet 02/18/20 Unknown Rx ED Physical Exam - General Limitations: No Limitations General appearance: alert, in no apparent distress - Head Head exam: Present: atraumatic, normocephalic - Eye Eye exam: Present: normal appearance, PERRL, EOMI Pupils: Present: normal accommodation - ENT ENT exam: Present: normal exam, normal orophraynx, mucous membranes moist - Neck Neck exam: Present: normal inspection, full ROM. Absent: tenderness, meningis mus - Respiratory Respiratory exam: Present: normal lung sounds bilaterally. Absent: respiratory distress, wheezes, rales, rhonchi, stridor, chest wall tenderness - Cardiovascular Cardiovascular Exam: Present: regular rate, normal rhythm, normal heart sounds. Absent: systolic murmur, diastolic murmur, rubs, gallop - GI/Abdominal GI/Abdominal exam: Present: soft, normal bowel sounds. Absent: distended, tenderness, guarding, rebound, rigid - Extremities Exam Extremities exam: Present: normal inspection, full ROM, normal capillary refill. Absent: tenderness, calf tenderness - Back Exam Back exam: Present: normal inspection, full ROM. Absent: tenderness, CVA tenderness (R), CVA tenderness (L), vertebral tenderness - Neurological Exam Neurological exam: Present: alert, oriented X3, normal gait - Psychiatric Psychiatric exam: Present: normal affect, normal mood - Skin Skin exam: Present: warm, dry, intact, normal color. Absent: rash ED Medical Decision Making - Radiology Data Radiology results: report reviewed, image reviewed X-ray of the pelvis was unremarkable, x-ray of the bilateral knee shows degenerative changes without acute fractures. X-ray of the right elbow shows degenerative changes without acute fracture. CT of the head was unremarkable with no acute intracranial abnormality. All read by radiology. - Medical Decision Making The imaging of the patient's complaints was unremarkable showing no acute fractures or intracranial abnormality. Patient be given outpatient follow-up with a primary care doctor and short course of Tylenol for pain. Recommend rest, ice, compression, elevation and outpatient follow-up with orthopedics as needed. She verbalized understanding the diagnosis, treatment plan and follow- up instructions and all of her questions were answered. - Differential Diagnosis Fracture, contusion, sprain, strain Critical care attestation.: If time is entered above; I have spent that time in minutes in the direct care of this critically ill patient, excluding procedure time. ED Disposition Clinical Impression: Contusion of right hip Qualifiers: Encounter type: initial encounter Qualified Code(s): S70.01XA - Contusion of right hip, initial encounter Contusion of right elbow Qualifiers: Encounter type: initial encounter Qualified Code(s): S50.01XA - Contusion of right elbow, initial encounter Closed head injury Qualifiers: Encounter type: initial encounter Qualified Code(s): S09.90XA - Unspecified injury of head, initial encounter Bilateral knee pain Qualifiers: Chronicity: acute Qualified Code(s): M25.561 - Pain in right knee; M25.562 - Pain in left knee Disposition: TO HOME OR SELFCARE Is pt being admited?: No Condition: Stable Instructions: Contusion Prescriptions: Acetaminophen [Mapap] 325 mg PO Q6HR #30 tablet Referrals: VALENTINO SKINNER MD [Staff Physician] - 3-5 Days Time of Disposition: 18:02
== END 2020-02-18 18:00 | disposition home or self-care (01) ==
LOC: ED 16:05
DX: S09.90XA Unspecified injury of head, initial encounter (principal); S50.01XA Contusion of right elbow, initial encounter; S70.01XA Contusion of right hip, initial encounter; M25.561 Pain in right knee; M25.562 Pain in left knee; I10 Essential (primary) hypertension; E11.9 Type 2 diabetes mellitus without complications; K21.9 Gastro-esophageal reflux disease without esophagitis; F20.9 Schizophrenia, unspecified; F32.9 Major depressive disorder, single episode, unspecified; Z98.890 Other specified postprocedural states; Z79.899 Other long term (current) drug therapy; Z88.0 Allergy status to penicillin; Z88.8 Allergy status to other drugs, medicaments and biological substances; W18.30XA Fall on same level, unspecified, initial encounter; Y93.89 Activity, other specified; Y92.410 Unspecified street and highway as the place of occurrence of the external cause; Y99.8 Other external cause status
CPT/HCPCS: 70450; 72170

== ENCOUNTER 2020-06-19 16:26 | Emergency (ER) | payer MEDICARE ==
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
[2020-06-19 17:24] LABS: Basophils % (Auto) 0.4 % (0.0-1.8); Eosinophils # (Auto) 0.2 K/mm3 (0.0-0.4); Eosinophils % (Auto) 2.4 % (0.0-4.3); Hematocrit 40.7 % (30.3-42.9); Hemoglobin 13.9 gm/dl (10.1-14.3); Lymphocytes # (Auto) 2.7 K/mm3 (1.2-5.4); Lymphocytes % (Auto) 35.5 % (13.4-35.0); Mean Corpuscular HGB Conc 34 % (30-34); Mean Corpuscular Volume 94 fl (79-97); Monocytes # (Auto) 0.9 K/mm3 (0.0-0.8); Monocytes % (Auto) 11.6 % (0.0-7.3); Platelet Count 239 K/mm3 (140-440); Red Blood Count 4.32 M/mm3 (3.65-5.03); Red Cell Distribution Width 15.2 % (13.2-15.2)
[2020-06-19 17:37] LABS: BUN/Creatinine Ratio 21; Blood Urea Nitrogen 19 mg/dL (7-17); Calcium 9.1 mg/dL (8.4-10.2); Hemolysis Index 9
[2020-06-19 18:46] LABS: Amphetamine Screen,Urine Negative; Benzodiazepines Screen,Urine Negative; Cannabinoid Screen,Urine Negative; Cocaine Screen,Urine Negative; Methadone Screen,Urine Negative; Opiate Screen,Urine Negative
[2020-06-19 18:48] LABS: Bacteria,Urine 1+ /HPF (Negative); Bilirubin,Urine NEG (Negative); Blood,Urine NEG (Negative); Color,Urine Straw (Yellow); Protein,Urine <15 mg/dL mg/dL (Negative); Urobilinogen,Urine < 2.0 mg/dL (<2.0); WBC,Urine < 1.0 /HPF (0.0-6.0)
[2020-06-20] MEDS ORDERED: SODIUM CHLORIDE 0.9% 1000 ML 1,000 ML IV ONE (00:51)
[2020-06-20 02:12] VITALS: BP 172/68
[2020-06-20] MEDS ORDERED: LORazepam 2 MG/ML VIAL IM PRN (07:24)
== END 2020-06-20 10:31 ==
LOC: ED 16:26
DX: F20.9 Schizophrenia, unspecified (principal); Z20.822 Contact with and (suspected) exposure to COVID-19; Z04.6 Encounter for general psychiatric examination, requested by authority; I10 Essential (primary) hypertension; E11.9 Type 2 diabetes mellitus without complications; K21.9 Gastro-esophageal reflux disease without esophagitis; Z98.890 Other specified postprocedural states; Z79.899 Other long term (current) drug therapy; Z86.73 Personal history of transient ischemic attack (TIA), and cerebral infarction without residual deficits; Z88.0 Allergy status to penicillin; Z88.8 Allergy status to other drugs, medicaments and biological substances
CPT/HCPCS: 36415; 80048; 80307; 81001; 82962; 85025; 99284; J7030; U0003; 80320; G0480

== ENCOUNTER 2020-06-20 10:29 | Inpatient (IN) | payer MEDICAID, MEDICARE ==
[2020-06-20] MEDS ORDERED: DICYCLOMINE 20 MG TAB PO PRN (11:17)
[2020-06-20] MEDS ORDERED: traMADol 50 MG TAB PO SCH (12:00)
[2020-06-20] MEDS: amLODIPine 10 MG TAB PO SCH (14:25)
[2020-06-20] MEDS: ACETAMINOPHEN 325 MG TAB PO SCH ×3 (14:31→23:25)
[2020-06-20] MEDS ORDERED: NON-FORMULARY EACH (Omeprazole [Omeprazole] 20 MG Capsule.Dr) PO SCH (22:00)
[2020-06-20] MEDS: PANTOPRAZOLE 20 MG TAB PO SCH (22:05)
[2020-06-20] MEDS: PRAVASTATIN 40 MG TAB PO SCH (22:05)
[2020-06-21 00:26] LABS: Basophils % (Auto) 0.3 % (0.0-1.8); Eosinophils # (Auto) 0.1 K/mm3 (0.0-0.4); Eosinophils % (Auto) 1.5 % (0.0-4.3); Hematocrit 36.3 % (30.3-42.9); Hemoglobin 12.4 gm/dl (10.1-14.3); Lymphocytes # (Auto) 2.2 K/mm3 (1.2-5.4); Mean Corpuscular HGB Conc 34 % (30-34); Mean Corpuscular Volume 94 fl (79-97); Monocytes # (Auto) 0.9 K/mm3 (0.0-0.8); Platelet Count 213 K/mm3 (140-440); Red Blood Count 3.87 M/mm3 (3.65-5.03); Red Cell Distribution Width 14.8 % (13.2-15.2)
[2020-06-21 04:07] LABS: Bilirubin,Urine NEG (Negative); Blood,Urine NEG (Negative); Color,Urine Yellow (Yellow); Protein,Urine <15 mg/dL mg/dL (Negative); WBC,Urine < 1.0 /HPF (0.0-6.0)
[2020-06-21 04:46] LABS: Alanine Aminotransferase 13 units/L (7-56); Albumin 3.6 g/dL (3.9-5); BUN/Creatinine Ratio 21; Blood Urea Nitrogen 19 mg/dL (7-17); Calcium 9.7 mg/dL (8.4-10.2); Chol/HDL Ratio 2.27 %; HDL Cholesterol 55 mg/dL (40-59); Hemolysis Index 2; LDL Cholesterol,Direct 60 mg/dL (50-130)
[2020-06-21] MEDS: ACETAMINOPHEN 325 MG TAB PO SCH ×3 (06:00→17:27)
--- NOTE | 2020-06-21 09:53 | Progress Note ---
Subjective Date of service: 06/21/20 Principal diagnosis: Schizophrenia Subjective Comment: Per Admission Note: Patient is delusional refused medications, and disorganized thought, paranoid pt believes that she is . Sawyer Herman is a 75y/o female from [facility]. Patient has a past medical history of schizophrenia, depression, hypertension, GERD, diabetes, and a CVA in 2013 per ER note. During my interview with the patient, she is sitting on side of bed. She is dressed. She is calm, cooperative and pleasant. She is a/o x 3. The patient says she is from [facility] and was brought here by the DC. She says the import/export administrator wanted her to come and she didn't know why. The patient says she has a history of schizophrenia but she didn't know her medications. She denies SI/HI or hallucinations of any kind. The nursing staff states the patient refuses her medications and continuously talks to herself. PAST PSYCHIATRIC HISTORY: Diagnoses: Schizophrenia Suicide attempts or Self-harm behavior: yes Prior psychiatric hospitalizations: yes Substance Abuse history: denies Previous psychiatric medications tried: invega Outpatient treatment: Denies PAST MEDICAL HISTORY: Diabetes Family Psychiatric History: None reported or documented SOCIAL HISTORY Marital Status: Living Arrangements: [facility] Employment Status: Disabled Access to guns/weapons: Denies Education: high school History of Abuse: Denies Legal History: Denies REVIEW OF SYSTEMS Constitutional: Negative for weight loss ENT: Negative for stridor Respiratory: Negative for cough or hemoptysis All other systems reviewed and are negative MENTAL STATUS EXAMINATION General Appearance and Behavior: Age appropriate, good hygiene, not wearing appropriate clothes, good eye contact, cooperative polite with questioning. Cooperation: Participating/engaged Psychomotor Behavior: Psychomotor normal Mood: "fine" Affect and affective range: Euthymic Thought Process: hallucinations Speech: Normal tone and pace Intellectual Functioning: Average Thought Content Suicidal Ideation: Denies Homicidal Ideation: Denies Hallucinations: Nursing staff reports talking to herself Delusions: None elicited Impulse Control: Limited Insight and Judgment: Limited insight and judgment Memory: Normal Attention: Divided attention impaired Orientation: A/o x 3 Assessment and Plan (1) Schizophrenia Current Visit: Yes Status: Acute Treatment Plan Patient admitted for inpatient psychiatric evaluation, medication adjustment and close monitoring The patient's behavior, mood, sleep and appetite will be closely monitored. Patient enrolled in individual and group therapeutic sessions and encouraged to attend. Patient provided with a safe and structured environment. Patient's physical health needs will be addressed by the Hospitalist. Hospitalist Consulted Labs including CBC, CMP, Lipid profile and Hemoglobin A1C levels ordered for baseline reference Social Assessment will be completed and the Furnace Combustion Analyst will work with patient and family to ensure a suitable and safe disposition Medication adjustment will be made as clinically indicated Increased Home Abilify 10mg po daily Restart Home medications Usual Wellness Confucianist/Preservation: - Start Trazodone 50 mg po QHS & 50 mg po QHS PRN between 10 PM & 2 AM for insomnia - Start Melatonin 5 mg po QHS to promote circadian rhythm - Start [place]-3 for brain health, reduce impulsivity, and as adjunctive treatment for mood disorder, continue upon discharge given overall benefits. - Start B1 prophylaxis with 200 mg po for 5 days The patient agreed on the treatment plan, understood the risk, benefit, alternative treatment, potential consequence of no treatment, and gave informed consent. Estimated days: 7 Post hospital care: primary care provider, psychiatric provider Medications and Allergies Allergies Allergy/AdvReac Type Severity Reaction Status Date / Time haloperidol [From Haldol] Allergy Unknown Verified 06/19/20 16:38 haloperidol lactate Allergy Unknown Verified 06/19/20 16:38 [From Haldol] Penicillins Allergy Unknown Verified 06/19/20 16:38 Home Medications Medication Instructions Recorded Confirmed Last Taken Type Omeprazole 20 mg PO HS 05/06/17 06/21/20 Unknown History Pravastatin Sodium [Pravachol] 40 mg PO HS 05/06/17 06/20/20 Unknown History Sertraline [Zoloft] 50 mg PO DAILY 05/06/17 06/20/20 Unknown History traMADoL [Ultram 50 MG tab] 50 mg PO PRN 05/06/17 06/21/20 Unknown History amLODIPine 10 mg PO QDAY #30 tablet 05/08/17 06/21/20 Unknown Rx Dicyclomine [Bentyl] 20 mg PO QID PRN #20 tablet 11/14/19 06/20/20 Unknown Rx Acetaminophen [Mapap] 325 mg PO Q6HR #30 tablet 02/18/20 06/21/20 Unknown Rx ARIPiprazole [Abilify TAB] 5 mg PO DAILY 06/20/20 06/20/20 Unknown History Aspirin EC [Halfprin EC] 81 mg PO QDAY 06/20/20 06/20/20 Unknown History Famotidine [Acid Controller] 20 mg PO DAILY 06/20/20 06/20/20 Unknown History Furosemide [Lasix] 20 mg PO QDAY 06/20/20 06/20/20 Unknown History Metformin HCl [metFORMIN ER 500 mg PO BID 06/20/20 06/20/20 Unknown History Osmotic] Potassium Chloride [K-Dur] 10 meq PO QDAY 06/20/20 06/20/20 Unknown History Spironolactone [Aldactone] 12.5 mg PO QDAY 06/20/20 06/20/20 Unknown History VALPROIC ACID Liq [DepaKENE Liq] 10 ml PO BID 06/20/20 06/20/20 Unknown History Active Meds: Active Medications Acetaminophen (Acetaminophen 325 Mg Tab) 325 mg PO Q6HR [facility] Last Admin: 06/21/20 06:00 Dose: Not Given Documented by: Amlodipine Besylate (Amlodipine 10 Mg Tab) 10 mg PO QDAY [facility] Last Admin: 06/20/20 14:25 Dose: Not Given Documented by: Dicyclomine HCl (Dicyclomine 20 Mg Tab) 20 mg PO QID PRN PRN Reason: abdominal pain Pantoprazole Sodium (Pantoprazole 20 Mg Tab) 20 mg PO HS [facility] Last Admin: 06/20/20 22:05 Dose: 20 mg Documented by: Pravastatin Sodium (Pravastatin 40 Mg Tab) 40 mg PO HS [facility] Last Admin: 06/20/20 22:05 Dose: 40 mg Documented by: Sertraline HCl (Sertraline 50 Mg Tab) 50 mg PO DAILY [facility] Tramadol HCl (Tramadol 50 Mg Tab) 50 mg PO PRN [facility] Results - Results Labs/Vitals: Laboratory Last Values WBC 7.1 K/mm3 (4.5-11.0) 06/20/20 23:52 RBC 3.87 M/mm3 (3.65-5.03) 06/20/20 23:52 Hgb 12.4 gm/dl (10.1-14.3) 06/20/20 23:52 Hct 36.3 % (30.3-42.9) 06/20/20 23:52 MCV 94 fl (79-97) 06/20/20 23:52 MCH 32 pg (28-32) 06/20/20 23:52 MCHC 34 % (30-34) 06/20/20 23:52 RDW 14.8 % (13.2-15.2) 06/20/20 23:52 Plt Count 213 K/mm3 (140-440) 06/20/20 23:52 Lymph % (Auto) 31.0 % (13.4-35.0) 06/20/20 23:52 [place] % (Auto) 13.0 % (0.0-7.3) H 06/20/20 23:52 Eos % (Auto) 1.5 % (0.0-4.3) 06/20/20 23:52 Baso % (Auto) 0.3 % (0.0-1.8) 06/20/20 23:52 Lymph # (Auto) 2.2 K/mm3 (1.2-5.4) 06/20/20 23:52 [place] # (Auto) 0.9 K/mm3 (0.0-0.8) H 06/20/20 23:52 Eos # (Auto) 0.1 K/mm3 (0.0-0.4) 06/20/20 23:52 Baso # (Auto) 0.0 K/mm3 (0.0-0.1) 06/20/20 23:52 Seg Neutrophils % 54.2 % (40.0-70.0) 06/20/20 23:52 Seg Neutrophils # 3.9 K/mm3 (1.8-7.7) 06/20/20 23:52 Sodium 133 mmol/L (137-145) L 06/20/20 23:52 Potassium 4.4 mmol/L (3.6-5.0) 06/20/20 23:52 Chloride 94.9 mmol/L (98-107) L 06/20/20 23:52 Carbon Dioxide 29 mmol/L (22-30) 06/20/20 23:52 Anion Gap 14 mmol/L 06/20/20 23:52 BUN 19 mg/dL (7-17) H 06/20/20 23:52 Creatinine 0.9 mg/dL (0.6-1.2) 06/20/20 23:52 Estimated GFR > 60 ml/min 06/20/20 23:52 BUN/Creatinine Ratio 21 % 06/20/20 23:52 Glucose 159 mg/dL (65-100) H 06/20/20 23:52 POC Glucose 115 mg/dL (70-105) H 06/20/20 20:47 Hemoglobin A1c 6.4 % (4-6) H 06/20/20 23:52 Calcium 9.7 mg/dL (8.4-10.2) 06/20/20 23:52 Total Bilirubin 0.30 mg/dL (0.1-1.2) 06/20/20 23:52 AST 17 units/L (5-40) 06/20/20 23:52 ALT 13 units/L (7-56) 06/20/20 23:52 Alkaline Phosphatase 58 units/L (35-129) 06/20/20 23:52 Total Protein 6.4 g/dL (6.3-8.2) 06/20/20 23:52 Albumin 3.6 g/dL (3.9-5) L 06/20/20 23:52 Albumin/Globulin Ratio 1.3 % 06/20/20 23:52 Triglycerides 69 mg/dL (2-149) 06/20/20 23:52 Cholesterol 125 mg/dL (50-199) 06/20/20 23:52 LDL Cholesterol Direct 60 mg/dL (50-130) 06/20/20 23:52 HDL Cholesterol 55 mg/dL (40-59) 06/20/20 23:52 Cholesterol/HDL Ratio 2.27 % 06/20/20 23:52 Urine Color Yellow (Yellow) 06/20/20 Unknown Urine Turbidity Clear (Clear) 06/20/20 Unknown Urine pH 7.0 (5.0-7.0) 06/20/20 Unknown Ur Specific [place] 1.015 (1.003-1.030) 06/20/20 Unknown Urine Protein <15 mg/dl mg/dL (Negative) 06/20/20 Unknown Urine Glucose (UA) Neg mg/dL (Negative) 06/20/20 Unknown Urine Ketones Neg mg/dL (Negative) 06/20/20 Unknown Urine Blood Neg (Negative) 06/20/20 Unknown Urine Nitrite Neg (Negative) 06/20/20 Unknown Urine Bilirubin Neg (Negative) 06/20/20 Unknown Urine Urobilinogen 4.0 mg/dL (<2.0) 06/20/20 Unknown Ur Leukocyte Esterase Neg (Negative) 06/20/20 Unknown Urine WBC (Auto) < 1.0 /HPF (0.0-6.0) 06/20/20 Unknown Urine RBC (Auto) 1.0 /HPF (0.0-6.0) 06/20/20 Unknown U Epithel Cells (Auto) 4.0 /HPF (0-13.0) 06/20/20 Unknown Last Vital Signs Temp 98.9 F 06/20/20 22:00 Pulse 68 06/20/20 22:00 Resp 18 06/20/20 22:00 BP 119/50 06/20/20 22:00 Pulse Ox 96 06/20/20 22:00
[2020-06-21] MEDS: SERTRALINE 50 MG TAB PO SCH (10:09)
[2020-06-21] MEDS: amLODIPine 10 MG TAB PO SCH (10:12)
[2020-06-21] MEDS ORDERED: NON-FORMULARY EACH (Metformin Hcl [Metformin Er Osmotic] 500 MG Tab.Er.24) PO SCH (10:15)
[2020-06-21] MEDS ORDERED: POTASSIUM CHLORIDE ER 20 MEQ TAB PO ONE (10:51)
[2020-06-21] MEDS ORDERED: metFORMIN 500 MG TAB ONE (10:52)
[2020-06-21] MEDS ORDERED: ASPIRIN 81 MG TAB CHEW ONE (10:53)
[2020-06-21] MEDS ORDERED: VALPROIC ACID 250 MG CAP PO ONE (10:53)
[2020-06-21] MEDS ORDERED: ARIPiprazole 5 MG TAB PO SCH (11:00)
[2020-06-21] MEDS: SPIRONOLACTONE 25 MG TAB PO SCH (12:41)
[2020-06-21] MEDS: FUROSEMIDE 20 MG TAB PO SCH (12:42)
[2020-06-21] MEDS: FAMOTIDINE 20 MG TAB PO SCH (12:44)
[2020-06-21] MEDS: VALPROIC ACID 250 MG/5 ML ORAL LIQD PO SCH ×2 (12:48→21:20)
[2020-06-21] MEDS: ASPIRIN EC 81 MG TAB PO SCH (12:50)
[2020-06-21] MEDS: POTASSIUM CHLORIDE ER 10 MEQ TAB PO SCH (12:51)
[2020-06-21] MEDS: metFORMIN XR 500MG TAB PO SCH ×2 (12:52→21:20)
[2020-06-21] MEDS: PRAVASTATIN 40 MG TAB PO SCH (21:21)
[2020-06-21] MEDS: PANTOPRAZOLE 20 MG TAB PO SCH (21:21)
[2020-06-22] MEDS: ACETAMINOPHEN 325 MG TAB PO SCH ×4 (03:03→17:18)
--- NOTE | 2020-06-22 09:01 | History and Physical Report ---
GP History & Physical - History of Present Illness Date of admission: 06/20/20 Date of Examination: 06/21/20 Reason for Admission: Failure of Outpatient Treatment, Unable to care for self History of Present Illness: PAST PSYCHIATRIC HISTORY: Diagnoses: Schizophrenia Suicide attempts or Self-harm behavior: yes Prior psychiatric hospitalizations: yes Substance Abuse history: denies Previous psychiatric medications tried: invega Outpatient treatment: Denies PAST MEDICAL HISTORY: Diabetes Family Psychiatric History: None reported or documented SOCIAL HISTORY Marital Status: Living Arrangements: [facility] Employment Status: Disabled Access to guns/weapons: Denies Education: high school History of Abuse: Denies Legal History: Denies REVIEW OF SYSTEMS Constitutional: Negative for weight loss ENT: Negative for stridor Respiratory: Negative for cough or hemoptysis All other systems reviewed and are negative MENTAL STATUS EXAMINATION General Appearance and Behavior: Age appropriate, good hygiene, not wearing appropriate clothes, good eye contact, cooperative polite with questioning. Cooperation: Participating/engaged Psychomotor Behavior: Psychomotor normal Mood: "fine" Affect and affective range: Euthymic Thought Process: hallucinations Speech: Normal tone and pace Intellectual Functioning: Average Thought Content Suicidal Ideation: Denies Homicidal Ideation: Denies Hallucinations: Nursing staff reports talking to herself Delusions: None elicited Impulse Control: Limited Insight and Judgment: Limited insight and judgment Memory: Normal Attention: Divided attention impaired Orientation: A/o x 3 Assessment and Plan (1) Schizophrenia Current Visit: Yes Status: Acute Treatment Plan Patient admitted for inpatient psychiatric evaluation, medication adjustment and close monitoring The patient's behavior, mood, sleep and appetite will be closely monitored. Patient enrolled in individual and group therapeutic sessions and encouraged to attend. Patient provided with a safe and structured environment. Patient's physical health needs will be addressed by the Hospitalist. Hospitalist Consulted Labs including CBC, CMP, Lipid profile and Hemoglobin A1C levels ordered for baseline reference Social Assessment will be completed and the Customer Counter Representative will work with patient and family to ensure a suitable and safe disposition Medication adjustment will be made as clinically indicated Increased Home Abilify 10mg po daily Restart Home medications Usual Wellness Rastafarian/Preservation: - Start Trazodone 50 mg po QHS & 50 mg po QHS PRN between 10 PM & 2 AM for insomnia - Start Melatonin 5 mg po QHS to promote circadian rhythm - Start [place]-3 for brain health, reduce impulsivity, and as adjunctive treatm ent for mood disorder, continue upon discharge given overall benefits. - Start B1 prophylaxis with 200 mg po for 5 days The patient agreed on the treatment plan, understood the risk, benefit, altern ative treatment, potential consequence of no treatment, and gave informed consent. Estimated days: 7 Post hospital care: primary care provider, psychiatric provider Legal Status: Voluntary Reaction to Hospitalization: Accepting Medications and Allergies Allergies Allergy/AdvReac Type Severity Reaction Status Date / Time haloperidol [From Haldol] Allergy Unknown Verified 06/19/20 16:38 haloperidol lactate Allergy Unknown Verified 06/19/20 16:38 [From Haldol] Penicillins Allergy Unknown Verified 06/19/20 16:38 Home Medications Medication Instructions Recorded Confirmed Last Taken Type Omeprazole 20 mg PO HS 05/06/17 06/21/20 Unknown History Pravastatin Sodium [Pravachol] 40 mg PO HS 05/06/17 06/20/20 Unknown History Sertraline [Zoloft] 50 mg PO DAILY 05/06/17 06/20/20 Unknown History traMADoL [Ultram 50 MG tab] 50 mg PO PRN 05/06/17 06/21/20 Unknown History amLODIPine 10 mg PO QDAY #30 tablet 05/08/17 06/21/20 Unknown Rx Dicyclomine [Bentyl] 20 mg PO QID PRN #20 tablet 11/14/19 06/20/20 Unknown Rx Acetaminophen [Mapap] 325 mg PO Q6HR #30 tablet 02/18/20 06/21/20 Unknown Rx ARIPiprazole [Abilify TAB] 5 mg PO DAILY 06/20/20 06/20/20 Unknown History Aspirin EC [Halfprin EC] 81 mg PO QDAY 06/20/20 06/20/20 Unknown History Famotidine [Acid Controller] 20 mg PO DAILY 06/20/20 06/20/20 Unknown History Furosemide [Lasix] 20 mg PO QDAY 06/20/20 06/20/20 Unknown History Metformin HCl [metFORMIN ER 500 mg PO BID 06/20/20 06/20/20 Unknown History Osmotic] Potassium Chloride [K-Dur] 10 meq PO QDAY 06/20/20 06/20/20 Unknown History Spironolactone [Aldactone] 12.5 mg PO QDAY 06/20/20 06/20/20 Unknown History VALPROIC ACID Liq [DepaKENE Liq] 10 ml PO BID 06/20/20 06/20/20 Unknown History Active Meds: Active Medications Acetaminophen (Acetaminophen 325 Mg Tab) 325 mg PO Q6HR [facility] Last Admin: 06/22/20 06:18 Dose: Not Given Documented by: Amlodipine Besylate (Amlodipine 10 Mg Tab) 10 mg PO QDAY [facility] Last Admin: 06/21/20 10:12 Dose: 10 mg Documented by: Aripiprazole (Aripiprazole 10 Mg Tab) 10 mg PO QDAY [facility] Aspirin (Aspirin Ec 81 Mg Tab) 81 mg PO QDAY [facility] Last Admin: 06/21/20 12:50 Dose: Not Given Documented by: Dicyclomine HCl (Dicyclomine 20 Mg Tab) 20 mg PO QID PRN PRN Reason: abdominal pain Famotidine (Famotidine 20 Mg Tab) 20 mg PO DAILY [facility] Last Admin: 06/21/20 12:44 Dose: 20 mg Documented by: Furosemide (Furosemide 20 Mg Tab) 20 mg PO QDAY [facility] Last Admin: 06/21/20 12:42 Dose: 20 mg Documented by: Metformin HCl (Metformin Xr 500mg Tab) 500 mg PO BID [facility] Last Admin: 06/21/20 21:20 Dose: 500 mg Documented by: Pantoprazole Sodium (Pantoprazole 20 Mg Tab) 20 mg PO [facility] Last Admin: 06/21/20 21:21 Dose: 20 mg Documented by: Potassium Chloride (Potassium Chloride Er 10 Meq Tab) 10 meq PO QDAY [facility] Last Admin: 06/21/20 12:51 Dose: Not Given Documented by: Pravastatin Sodium (Pravastatin 40 Mg Tab) 40 mg PO [facility] Last Admin: 06/21/20 21:21 Dose: 40 mg Documented by: Sertraline HCl (Sertraline 50 Mg Tab) 50 mg PO DAILY [facility] Last Admin: 06/21/20 10:09 Dose: 50 mg Documented by: Spironolactone (Spironolactone 25 Mg Tab) 12.5 mg PO QDAY [facility] Last Admin: 06/21/20 12:41 Dose: 12.5 mg Documented by: Tramadol HCl (Tramadol 50 Mg Tab) 50 mg PO PRN [facility] Valproic Acid (Valproic Acid 250 Mg/5 Ml Oral Liqd) 500 mg PO BID [facility] Last Admin: 06/21/20 21:20 Dose: 500 mg Documented by: Results - Results Labs/Vitals: Laboratory Last Values WBC 7.1 K/mm3 (4.5-11.0) 06/20/20 23:52 RBC 3.87 M/mm3 (3.65-5.03) 06/20/20 23:52 Hgb 12.4 gm/dl (10.1-14.3) 06/20/20 23:52 Hct 36.3 % (30.3-42.9) 06/20/20 23:52 MCV 94 fl (79-97) 06/20/20 23:52 MCH 32 pg (28-32) 06/20/20 23:52 MCHC 34 % (30-34) 06/20/20 23:52 RDW 14.8 % (13.2-15.2) 06/20/20 23:52 Plt Count 213 K/mm3 (140-440) 06/20/20 23:52 Lymph % (Auto) 31.0 % (13.4-35.0) 06/20/20 23:52 [place] % (Auto) 13.0 % (0.0-7.3) H 06/20/20 23:52 Eos % (Auto) 1.5 % (0.0-4.3) 06/20/20 23:52 Baso % (Auto) 0.3 % (0.0-1.8) 06/20/20 23:52 Lymph # (Auto) 2.2 K/mm3 (1.2-5.4) 06/20/20 23:52 [place] # (Auto) 0.9 K/mm3 (0.0-0.8) H 06/20/20 23:52 Eos # (Auto) 0.1 K/mm3 (0.0-0.4) 06/20/20 23:52 Baso # (Auto) 0.0 K/mm3 (0.0-0.1) 06/20/20 23:52 Seg Neutrophils % 54.2 % (40.0-70.0) 06/20/20 23:52 Seg Neutrophils # 3.9 K/mm3 (1.8-7.7) 06/20/20 23:52 Sodium 133 mmol/L (137-145) L 06/20/20 23:52 Potassium 4.4 mmol/L (3.6-5.0) 06/20/20 23:52 Chloride 94.9 mmol/L (98-107) L 06/20/20 23:52 Carbon Dioxide 29 mmol/L (22-30) 06/20/20 23:52 Anion Gap 14 mmol/L 06/20/20 23:52 BUN 19 mg/dL (7-17) H 06/20/20 23:52 Creatinine 0.9 mg/dL (0.6-1.2) 06/20/20 23:52 Estimated GFR > 60 ml/min 06/20/20 23:52 BUN/Creatinine Ratio 21 % 06/20/20 23:52 Glucose 159 mg/dL (65-100) H 06/20/20 23:52 POC Glucose 115 mg/dL (70-105) H 06/20/20 20:47 Hemoglobin A1c 6.4 % (4-6) H 06/20/20 23:52 Calcium 9.7 mg/dL (8.4-10.2) 06/20/20 23:52 Total Bilirubin 0.30 mg/dL (0.1-1.2) 06/20/20 23:52 AST 17 units/L (5-40) 06/20/20 23:52 ALT 13 units/L (7-56) 06/20/20 23:52 Alkaline Phosphatase 58 units/L (35-129) 06/20/20 23:52 Total Protein 6.4 g/dL (6.3-8.2) 06/20/20 23:52 Albumin 3.6 g/dL (3.9-5) L 06/20/20 23:52 Albumin/Globulin Ratio 1.3 % 06/20/20 23:52 Triglycerides 69 mg/dL (2-149) 06/20/20 23:52 Cholesterol 125 mg/dL (50-199) 06/20/20 23:52 LDL Cholesterol Direct 60 mg/dL (50-130) 06/20/20 23:52 HDL Cholesterol 55 mg/dL (40-59) 06/20/20 23:52 Cholesterol/HDL Ratio 2.27 % 06/20/20 23:52 Urine Color Yellow (Yellow) 06/20/20 Unknown Urine Turbidity Clear (Clear) 06/20/20 Unknown Urine pH 7.0 (5.0-7.0) 06/20/20 Unknown Ur Specific [place] 1.015 (1.003-1.030) 06/20/20 Unknown Urine Protein <15 mg/dl mg/dL (Negative) 06/20/20 Unknown Urine Glucose (UA) Neg mg/dL (Negative) 06/20/20 Unknown Urine Ketones Neg mg/dL (Negative) 06/20/20 Unknown Urine Blood Neg (Negative) 06/20/20 Unknown Urine Nitrite Neg (Negative) 06/20/20 Unknown Urine Bilirubin Neg (Negative) 06/20/20 Unknown Urine Urobilinogen 4.0 mg/dL (<2.0) 06/20/20 Unknown Ur Leukocyte Esterase Neg (Negative) 06/20/20 Unknown Urine WBC (Auto) < 1.0 /HPF (0.0-6.0) 06/20/20 Unknown Urine RBC (Auto) 1.0 /HPF (0.0-6.0) 06/20/20 Unknown U Epithel Cells (Auto) 4.0 /HPF (0-13.0) 06/20/20 Unknown Last Vital Signs Temp 98.6 F 06/21/20 22:00 Pulse 58 L 06/21/20 22:00 Resp 14 06/21/20 22:00 BP 142/44 06/21/20 22:00 Pulse Ox 99 06/21/20 22:00 Physical Examination - Constitutional Vitals: Vital Signs Temp Pulse Resp BP Pulse Ox 98.6 F 58 L 14 142/44 99 06/21/20 22:00 06/21/20 22:00 06/21/20 22:00 06/21/20 22:00 06/21/20 22:00 Temperature -Last 24 Hours Temperature 98.6 F Temperature 98.6 F Temperature 98.5 F Temperature 98.5 F Mental Status Exam - Vital signs Last Vital Signs Temp 98.6 F 06/21/20 22:00 Pulse 58 L 06/21/20 22:00 Resp 14 06/21/20 22:00 BP 142/44 06/21/20 22:00 Pulse Ox 99 06/21/20 22:00 Physician Certification - Certification Statement Physician Certification Statement: This is an acknowledgement statement that MARY JO GALLARDO is a 75 year old F who requires inpatient psychiatric admission for treatment which could reasonably be expected to improve the patient's condition for Estimated period of time patient will need to remain in the hospital: [ ] Plan for post-hospital care: [ ]
[2020-06-22] MEDS: SPIRONOLACTONE 25 MG TAB PO SCH (10:03)
[2020-06-22] MEDS: amLODIPine 10 MG TAB PO SCH (10:03)
[2020-06-22] MEDS: ARIPiprazole 10 MG TAB PO SCH (10:04)
[2020-06-22] MEDS: VALPROIC ACID 250 MG/5 ML ORAL LIQD PO SCH ×2 (10:04→21:09)
[2020-06-22] MEDS: POTASSIUM CHLORIDE ER 10 MEQ TAB PO SCH (10:05)
[2020-06-22] MEDS: metFORMIN XR 500MG TAB PO SCH ×2 (10:05→21:10)
[2020-06-22] MEDS: ASPIRIN EC 81 MG TAB PO SCH (10:05)
[2020-06-22] MEDS: FAMOTIDINE 20 MG TAB PO SCH (10:06)
[2020-06-22] MEDS: SERTRALINE 50 MG TAB PO SCH (10:07)
[2020-06-22] MEDS: FUROSEMIDE 20 MG TAB PO SCH (10:08)
--- NOTE | 2020-06-22 10:52 | Consultation ---
History of Present Illness - Reason for Consult Consult date: 06/22/20 Medical consult Requesting physician: SHAYE BARRETT - History of Present Illness 75-year-old -[place]aced[place] female patient resident of [facility] intermediate with significant past medical history of schizophrenia ,depression, type 2 diabetes mellitus, hypertension CVA in 2013, GERD was admitted to [facility] unit by psychiatry for further evaluation and management. Patient was sent from intermediate with history of delusional thinking refusing to take medications paranoid behavior believes that she is unable to care for herself. Hospitalist service was requested for medical consult At the time of my evaluation patient states that she is doing well no complaints of chest pain or shortness of breath, Denies nausea vomiting or abdominal pain Responding to simple questions appropriately Past History Past Medical History: diabetes, GERD, heart failure, hypertension, stroke, other (Schizophrenia depression, ) Past Surgical History: Other (Right lumpectomy) Social history: full code. denies: smoking, alcohol abuse, prescription drug abuse Family history: no significant family history Medications and Allergies Allergies Allergy/AdvReac Type Severity Reaction Status Date / Time haloperidol [From Haldol] Allergy Unknown Verified 06/19/20 16:38 haloperidol lactate Allergy Unknown Verified 06/19/20 16:38 [From Haldol] Penicillins Allergy Unknown Verified 06/19/20 16:38 Home Medications Medication Instructions Recorded Confirmed Last Taken Type Omeprazole 20 mg PO HS 05/06/17 06/21/20 Unknown History Pravastatin Sodium [Pravachol] 40 mg PO HS 05/06/17 06/20/20 Unknown History Sertraline [Zoloft] 50 mg PO DAILY 05/06/17 06/20/20 Unknown History traMADoL [Ultram 50 MG tab] 50 mg PO PRN 05/06/17 06/21/20 Unknown History amLODIPine 10 mg PO QDAY #30 tablet 05/08/17 06/21/20 Unknown Rx Dicyclomine [Bentyl] 20 mg PO QID PRN #20 tablet 11/14/19 06/20/20 Unknown Rx Acetaminophen [Mapap] 325 mg PO Q6HR #30 tablet 02/18/20 06/21/20 Unknown Rx ARIPiprazole [Abilify TAB] 5 mg PO DAILY 06/20/20 06/20/20 Unknown History Aspirin EC [Halfprin EC] 81 mg PO QDAY 06/20/20 06/20/20 Unknown History Famotidine [Acid Controller] 20 mg PO DAILY 06/20/20 06/20/20 Unknown History Furosemide [Lasix] 20 mg PO QDAY 06/20/20 06/20/20 Unknown History Metformin HCl [metFORMIN ER 500 mg PO BID 06/20/20 06/20/20 Unknown History Osmotic] Potassium Chloride [K-Dur] 10 meq PO QDAY 06/20/20 06/20/20 Unknown History Spironolactone [Aldactone] 12.5 mg PO QDAY 06/20/20 06/20/20 Unknown History VALPROIC ACID Liq [DepaKENE Liq] 10 ml PO BID 06/20/20 06/20/20 Unknown History Active Meds: Active Medications Acetaminophen (Acetaminophen 325 Mg Tab) 325 mg PO Q6HR [facility] Last Admin: 06/22/20 06:18 Dose: Not Given Documented by: Amlodipine Besylate (Amlodipine 10 Mg Tab) 10 mg PO QDAY [facility] Last Admin: 06/22/20 10:03 Dose: 10 mg Documented by: Aripiprazole (Aripiprazole 10 Mg Tab) 10 mg PO QDAY [facility] Last Admin: 06/22/20 10:04 Dose: 10 mg Documented by: Aspirin (Aspirin Ec 81 Mg Tab) 81 mg PO QDAY [facility] Last Admin: 06/22/20 10:05 Dose: 81 mg Documented by: Dicyclomine HCl (Dicyclomine 20 Mg Tab) 20 mg PO QID PRN PRN Reason: abdominal pain Famotidine (Famotidine 20 Mg Tab) 20 mg PO DAILY [facility] Last Admin: 06/22/20 10:06 Dose: 20 mg Documented by: Furosemide (Furosemide 20 Mg Tab) 20 mg PO QDAY [facility] Last Admin: 06/22/20 10:08 Dose: 20 mg Documented by: Metformin HCl (Metformin Xr 500mg Tab) 500 mg PO BID [facility] Last Admin: 06/22/20 10:05 Dose: 500 mg Documented by: Pantoprazole Sodium (Pantoprazole 20 Mg Tab) 20 mg PO [facility] Last Admin: 06/21/20 21:21 Dose: 20 mg Documented by: Potassium Chloride (Potassium Chloride Er 10 Meq Tab) 10 meq PO QDAY [facility] Last Admin: 06/22/20 10:05 Dose: 10 meq Documented by: Pravastatin Sodium (Pravastatin 40 Mg Tab) 40 mg PO HS [facility] Last Admin: 06/21/20 21:21 Dose: 40 mg Documented by: Sertraline HCl (Sertraline 50 Mg Tab) 50 mg PO DAILY [facility] Last Admin: 06/22/20 10:07 Dose: 50 mg Documented by: Spironolactone (Spironolactone 25 Mg Tab) 12.5 mg PO QDAY [facility] Last Admin: 06/22/20 10:03 Dose: 12.5 mg Documented by: Tramadol HCl (Tramadol 50 Mg Tab) 50 mg PO PRN [facility] Valproic Acid (Valproic Acid 250 Mg/5 Ml Oral Liqd) 500 mg PO BID [facility] Last Admin: 06/22/20 10:04 Dose: 500 mg Documented by: Review of Systems Constitutional: no weight loss, no weight gain, no fever, no chills Ears, nose, mouth and throat: no nasal congestion, no nasal discharge Cardiovascular: no chest pain, no syncope, no lightheadedness Gastrointestinal: no abdominal pain, no nausea, no vomiting Genitourinary Female: no flank pain, no dysuria Musculoskeletal: no myalgias, no arthritis Integumentary: no rash, no lesions Neurological: no seizures, no syncope Psychiatric: hallucinations, depression, confusion, other (Schizophrenia, paranoid, delusional) Exam - Constitutional Vitals: Temp Pulse Resp BP Pulse Ox 99.0 F 62 18 169/78 99 06/22/20 09:37 06/22/20 09:37 06/22/20 09:37 06/22/20 09:37 06/22/20 09:37 General appearance: Present: no acute distress, well-nourished, obese, other (Confused at times) - EENT Eyes: Present: PERRL, EOM intact - Neck Neck: Present: supple, normal ROM - Respiratory Respiratory effort: normal Respiratory: bilateral: diminished, negative: rales, rhonchi, wheezing - Cardiovascular Rhythm: regular Heart Sounds: Present: S1 & S2 - Extremities Extremities: no ischemia, No edema - Abdominal General gastrointestinal: Present: soft, non-tender, non-distended, normal bowel sounds - Integumentary Integumentary: Present: clear, warm - Musculoskeletal Musculoskeletal: strength equal bilaterally, generalized weakness - Psychiatric Psychiatric: agitated, other (Confused at times, delusional) - Neurologic Neurologic: moves all extremities Results - Labs CBC & Chem 7: 06/20/20 23:52 06/20/20 23:52 Assessment and Plan --Schizophrenia/delusions; Management per psych --Depression; Management per psych --Type 2 diabetes mellitus Accu-Chek; Sliding scale coverage, ADA diet oral hypoglycemics, --Hypertension; moderate control Continue current antihypertensives As needed hydralazine --Dyslipidemia; continue statin --History of CVA; Supportive care --GERD; continue Protonix --Obesity; BMI 34.9 Patient may need weight reduction when medically stable --DVT prophylaxis; SCDs while resting Ambulate as tolerated rest of the time We will closely monitor the patient and adjust the management as needed Plan of care reviewed with the patient's nurse Thank you for this consult We will follow the patient along with you as needed basis
[2020-06-22] MEDS: PANTOPRAZOLE 20 MG TAB PO SCH (21:10)
[2020-06-22] MEDS: PRAVASTATIN 40 MG TAB PO SCH (21:10)
[2020-06-23] MEDS: ACETAMINOPHEN 325 MG TAB PO SCH ×4 (00:19→17:52)
[2020-06-23] MEDS: metFORMIN XR 500MG TAB PO SCH ×2 (09:52→22:02)
[2020-06-23] MEDS: ASPIRIN EC 81 MG TAB PO SCH (09:52)
[2020-06-23] MEDS: VALPROIC ACID 250 MG/5 ML ORAL LIQD PO SCH ×2 (09:52→22:02)
[2020-06-23] MEDS: FUROSEMIDE 20 MG TAB PO SCH (09:52)
[2020-06-23] MEDS: ARIPiprazole 10 MG TAB PO SCH (09:52)
[2020-06-23] MEDS: FAMOTIDINE 20 MG TAB PO SCH (09:53)
[2020-06-23] MEDS: SERTRALINE 50 MG TAB PO SCH (09:53)
[2020-06-23] MEDS: POTASSIUM CHLORIDE ER 10 MEQ TAB PO SCH (09:53)
[2020-06-23] MEDS: SPIRONOLACTONE 25 MG TAB PO SCH (09:53)
[2020-06-23] MEDS: amLODIPine 10 MG TAB PO SCH (09:54)
--- NOTE | 2020-06-23 10:07 | Progress Note ---
Subjective Date of service: 06/23/20 Principal diagnosis: Schizophrenia Subjective Comment: Per Nurse Note: pt rested well during the night, slept for approximately 7hrs, no distress noted, will continue to monitor for safety. Nurse states the patient talks to herself sometimes. The patient was seen today. She is lying in bed awake. She says she is doing "very well." She says she slept "as well as I can in here." She denies SI/HI or hallucinations of any kind. She says "I told you I talk to myself sometimes because it's nothing to do in here." Reason for continued inpatient treatment: The appears to be at her baseline. Will continue to treat and monitor to ensue a safe discharge. PAST PSYCHIATRIC HISTORY: Diagnoses: Schizophrenia Suicide attempts or Self-harm behavior: yes Prior psychiatric hospitalizations: yes Substance Abuse history: denies Previous psychiatric medications tried: invega Outpatient treatment: Denies PAST MEDICAL HISTORY: Diabetes Family Psychiatric History: None reported or documented SOCIAL HISTORY Marital Status: Living Arrangements: [facility] Employment Status: Disabled Access to guns/weapons: Denies Education: high school History of Abuse: Denies Legal History: Denies REVIEW OF SYSTEMS Constitutional: Negative for weight loss ENT: Negative for stridor Respiratory: Negative for cough or hemoptysis All other systems reviewed and are negative MENTAL STATUS EXAMINATION General Appearance and Behavior: Age appropriate, good hygiene, not wearing appropriate clothes, good eye contact, cooperative polite with questioning. Cooperation: Participating/engaged Psychomotor Behavior: Psychomotor normal Mood: "pretty good" Affect and affective range: Euthymic Thought Process: hallucinations Speech: Normal tone and pace Intellectual Functioning: Average Thought Content Suicidal Ideation: Denies Homicidal Ideation: Denies Hallucinations: Nursing staff reports talking to herself Delusions: None elicited Impulse Control: Limited Insight and Judgment: Limited insight and judgment Memory: Normal Attention: Divided attention impaired Orientation: A/o x 3 Assessment and Plan (1) Schizophrenia Current Visit: Yes Status: Acute Treatment Plan Patient admitted for inpatient psychiatric evaluation, medication adjustment and close monitoring The patient's behavior, mood, sleep and appetite will be closely monitored. Patient enrolled in individual and group therapeutic sessions and encouraged to attend. Patient provided with a safe and structured environment. Patient's physical health needs will be addressed by the Hospitalist. Hospitalist Consulted Labs including CBC, CMP, Lipid profile and Hemoglobin A1C levels ordered for baseline reference Social Assessment will be completed and the Aromatherapist will work with patient and family to ensure a suitable and safe disposition Medication adjustment will be made as clinically indicated Continue Abilify 10mg po daily yesterday No changes today Usual Wellness Mandaeism/Preservation: - Start Trazodone 50 mg po QHS & 50 mg po QHS PRN between 10 PM & 2 AM for insomnia - Start Melatonin 5 mg po QHS to promote circadian rhythm - Start [place]-3 for brain health, reduce impulsivity, and as adjunctive treatment for mood disorder, continue upon discharge given overall benefits. - Start B1 prophylaxis with 200 mg po for 5 days The patient agreed on the treatment plan, understood the risk, benefit, alternative treatment, potential consequence of no treatment, and gave informed consent. Estimated days: 1 Post hospital care: primary care provider, psychiatric provider Medications and Allergies Allergies Allergy/AdvReac Type Severity Reaction Status Date / Time haloperidol [From Haldol] Allergy Unknown Verified 06/19/20 16:38 haloperidol lactate Allergy Unknown Verified 06/19/20 16:38 [From Haldol] Penicillins Allergy Unknown Verified 06/19/20 16:38 Home Medications Medication Instructions Recorded Confirmed Last Taken Type Omeprazole 20 mg PO HS 05/06/17 06/21/20 Unknown History Pravastatin Sodium [Pravachol] 40 mg PO HS 05/06/17 06/20/20 Unknown History Sertraline [Zoloft] 50 mg PO DAILY 05/06/17 06/20/20 Unknown History traMADoL [Ultram 50 MG tab] 50 mg PO PRN 05/06/17 06/21/20 Unknown History amLODIPine 10 mg PO QDAY #30 tablet 05/08/17 06/21/20 Unknown Rx Dicyclomine [Bentyl] 20 mg PO QID PRN #20 tablet 11/14/19 06/20/20 Unknown Rx Acetaminophen [Mapap] 325 mg PO Q6HR #30 tablet 02/18/20 06/21/20 Unknown Rx ARIPiprazole [Abilify TAB] 5 mg PO DAILY 06/20/20 06/20/20 Unknown History Aspirin EC [Halfprin EC] 81 mg PO QDAY 06/20/20 06/20/20 Unknown History Famotidine [Acid Controller] 20 mg PO DAILY 06/20/20 06/20/20 Unknown History Furosemide [Lasix] 20 mg PO QDAY 06/20/20 06/20/20 Unknown History Metformin HCl [metFORMIN ER 500 mg PO BID 06/20/20 06/20/20 Unknown History Osmotic] Potassium Chloride [K-Dur] 10 meq PO QDAY 06/20/20 06/20/20 Unknown History Spironolactone [Aldactone] 12.5 mg PO QDAY 06/20/20 06/20/20 Unknown History VALPROIC ACID Liq [DepaKENE Liq] 10 ml PO BID 06/20/20 06/20/20 Unknown History Active Meds: Active Medications Acetaminophen (Acetaminophen 325 Mg Tab) 325 mg PO Q6HR [facility] Last Admin: 06/23/20 06:01 Dose: Not Given Documented by: Amlodipine Besylate (Amlodipine 10 Mg Tab) 10 mg PO QDAY [facility] Last Admin: 06/23/20 09:54 Dose: 10 mg Documented by: Aripiprazole (Aripiprazole 10 Mg Tab) 10 mg PO QDAY [facility] Last Admin: 06/23/20 09:52 Dose: 10 mg Documented by: Aspirin (Aspirin Ec 81 Mg Tab) 81 mg PO QDAY [facility] Last Admin: 06/23/20 09:52 Dose: 81 mg Documented by: Dicyclomine HCl (Dicyclomine 20 Mg Tab) 20 mg PO QID PRN PRN Reason: abdominal pain Famotidine (Famotidine 20 Mg Tab) 20 mg PO DAILY [facility] Last Admin: 06/23/20 09:53 Dose: 20 mg Documented by: Furosemide (Furosemide 20 Mg Tab) 20 mg PO QDAY [facility] Last Admin: 06/23/20 09:52 Dose: 20 mg Documented by: Metformin HCl (Metformin Xr 500mg Tab) 500 mg PO BID [facility] Last Admin: 06/23/20 09:52 Dose: 500 mg Documented by: Pantoprazole Sodium (Pantoprazole 20 Mg Tab) [address] [facility] Last Admin: 06/22/20 21:10 Dose: 20 mg Documented by: Potassium Chloride (Potassium Chloride Er 10 Meq Tab) 10 meq PO QDAY [facility] Last Admin: 06/23/20 09:53 Dose: 10 meq Documented by: Pravastatin Sodium (Pravastatin 40 Mg Tab) 40 mg [address] [facility] Last Admin: 06/22/20 21:10 Dose: 40 mg Documented by: Sertraline HCl (Sertraline 50 Mg Tab) 50 mg PO DAILY [facility] Last Admin: 06/23/20 09:53 Dose: 50 mg Documented by: Spironolactone (Spironolactone 25 Mg Tab) 12.5 mg PO QDAY [facility] Last Admin: 06/23/20 09:53 Dose: 12.5 mg Documented by: Tramadol HCl (Tramadol 50 Mg Tab) 50 mg PO PRN [facility] Valproic Acid (Valproic Acid 250 Mg/5 Ml Oral Liqd) 500 mg PO BID [facility] Last Admin: 06/23/20 09:52 Dose: 500 mg Documented by: Results - Results Labs/Vitals: Laboratory Last Values WBC 7.1 K/mm3 (4.5-11.0) 06/20/20 23:52 RBC 3.87 M/mm3 (3.65-5.03) 06/20/20 23:52 Hgb 12.4 gm/dl (10.1-14.3) 06/20/20 23:52 Hct 36.3 % (30.3-42.9) 06/20/20 23:52 MCV 94 fl (79-97) 06/20/20 23:52 MCH 32 pg (28-32) 06/20/20 23:52 MCHC 34 % (30-34) 06/20/20 23:52 RDW 14.8 % (13.2-15.2) 06/20/20 23:52 Plt Count 213 K/mm3 (140-440) 06/20/20 23:52 Lymph % (Auto) 31.0 % (13.4-35.0) 06/20/20 23:52 [place] % (Auto) 13.0 % (0.0-7.3) H 06/20/20 23:52 Eos % (Auto) 1.5 % (0.0-4.3) 06/20/20 23:52 Baso % (Auto) 0.3 % (0.0-1.8) 06/20/20 23:52 Lymph # (Auto) 2.2 K/mm3 (1.2-5.4) 06/20/20 23:52 [place] # (Auto) 0.9 K/mm3 (0.0-0.8) H 06/20/20 23:52 Eos # (Auto) 0.1 K/mm3 (0.0-0.4) 06/20/20 23:52 Baso # (Auto) 0.0 K/mm3 (0.0-0.1) 06/20/20 23:52 Seg Neutrophils % 54.2 % (40.0-70.0) 06/20/20 23:52 Seg Neutrophils # 3.9 K/mm3 (1.8-7.7) 06/20/20 23:52 Sodium 133 mmol/L (137-145) L 06/20/20 23:52 Potassium 4.4 mmol/L (3.6-5.0) 06/20/20 23:52 Chloride 94.9 mmol/L (98-107) L 06/20/20 23:52 Carbon Dioxide 29 mmol/L (22-30) 06/20/20 23:52 Anion Gap 14 mmol/L 06/20/20 23:52 BUN 19 mg/dL (7-17) H 06/20/20 23:52 Creatinine 0.9 mg/dL (0.6-1.2) 06/20/20 23:52 Estimated GFR > 60 ml/min 06/20/20 23:52 BUN/Creatinine Ratio 21 % 06/20/20 23:52 Glucose 159 mg/dL (65-100) H 06/20/20 23:52 POC Glucose 88 mg/dL (70-105) 06/23/20 06:38 Hemoglobin A1c 6.4 % (4-6) H 06/20/20 23:52 Calcium 9.7 mg/dL (8.4-10.2) 06/20/20 23:52 Total Bilirubin 0.30 mg/dL (0.1-1.2) 06/20/20 23:52 AST 17 units/L (5-40) 06/20/20 23:52 ALT 13 units/L (7-56) 06/20/20 23:52 Alkaline Phosphatase 58 units/L (35-129) 06/20/20 23:52 Total Protein 6.4 g/dL (6.3-8.2) 06/20/20 23:52 Albumin 3.6 g/dL (3.9-5) L 06/20/20 23:52 Albumin/Globulin Ratio 1.3 % 06/20/20 23:52 Triglycerides 69 mg/dL (2-149) 06/20/20 23:52 Cholesterol 125 mg/dL (50-199) 06/20/20 23:52 LDL Cholesterol Direct 60 mg/dL (50-130) 06/20/20 23:52 HDL Cholesterol 55 mg/dL (40-59) 06/20/20 23:52 Cholesterol/HDL Ratio 2.27 % 06/20/20 23:52 Urine Color Yellow (Yellow) 06/20/20 Unknown Urine Turbidity Clear (Clear) 06/20/20 Unknown Urine pH 7.0 (5.0-7.0) 06/20/20 Unknown Ur Specific [place] 1.015 (1.003-1.030) 06/20/20 Unknown Urine Protein <15 mg/dl mg/dL (Negative) 06/20/20 Unknown Urine Glucose (UA) Neg mg/dL (Negative) 06/20/20 Unknown Urine Ketones Neg mg/dL (Negative) 06/20/20 Unknown Urine Blood Neg (Negative) 06/20/20 Unknown Urine Nitrite Neg (Negative) 06/20/20 Unknown Urine Bilirubin Neg (Negative) 06/20/20 Unknown Urine Urobilinogen 4.0 mg/dL (<2.0) 06/20/20 Unknown Ur Leukocyte Esterase Neg (Negative) 06/20/20 Unknown Urine WBC (Auto) < 1.0 /HPF (0.0-6.0) 06/20/20 Unknown Urine RBC (Auto) 1.0 /HPF (0.0-6.0) 06/20/20 Unknown U Epithel Cells (Auto) 4.0 /HPF (0-13.0) 06/20/20 Unknown Valproic Acid 64.1 ug/mL (50-100) 06/22/20 14:17 Last Vital Signs Temp 98.4 F 06/23/20 07:20 Pulse 62 06/23/20 09:54 Resp 15 06/23/20 07:20 BP 138/66 06/23/20 09:54 Pulse Ox 100 06/23/20 07:20
[2020-06-23] MEDS: PRAVASTATIN 40 MG TAB PO SCH (22:02)
[2020-06-23] MEDS: PANTOPRAZOLE 20 MG TAB PO SCH (22:09)
[2020-06-23] MEDS ORDERED: ACETAMINOPHEN 325 MG TAB PO PRN (22:53)
--- NOTE | 2020-06-24 08:31 | Discharge Summary ---
Providers - Providers Date of Admission: 06/20/20 12:00 Date of discharge: 06/24/20 Attending physician: SHAYE BARRETT MD 06/20/20 11:14 Consult to Physician [CONS] Routine Comment: Consulting Provider: HANNAH OROZCO Physician Instructions: Reason For Exam: manage medical conditons Primary care physician: [facility] Hospitalization Reason for admission: delusional Admitting Diagnosis: F20.9 - SCHIZOPHRENIA, UNSPECIFIED Condition: Stable Hospital course: The patient was provided inpatient psychiatric treatment with safe and supportive care, medication adjustment, adverse effect monitoring, medical evaluations, medical treatments, assessment and psycho-education. The patient's mood, cognition, behavior, moral support are improved and stabilized. St the time of discharge, the patient had no endangering behavior and no debilitating adverse effects. The patient agreed on potential consequences of no treatment and gave informed consent. Disposition: - TO HOME OR SELFCARE Time spent for discharge: 38 Allergies/Adverse Reactions: Allergies haloperidol [From Haldol] Allergy (Verified 06/19/20 16:38) Unknown haloperidol lactate [From Haldol] Allergy (Verified 06/19/20 16:38) Unknown Penicillins Allergy (Verified 06/19/20 16:38) Unknown Vital Signs: Last Vital Signs Temp 98.5 F 06/23/20 22:58 Pulse 60 06/23/20 22:58 Resp 18 06/23/20 22:58 BP 129/74 06/23/20 22:58 Pulse Ox 99 06/23/20 22:58 Last Lab: Laboratory Last Values WBC 7.1 K/mm3 (4.5-11.0) 06/20/20 23:52 RBC 3.87 M/mm3 (3.65-5.03) 06/20/20 23:52 Hgb 12.4 gm/dl (10.1-14.3) 06/20/20 23:52 Hct 36.3 % (30.3-42.9) 06/20/20 23:52 MCV 94 fl (79-97) 06/20/20 23:52 MCH 32 pg (28-32) 06/20/20 23:52 MCHC 34 % (30-34) 06/20/20 23:52 RDW 14.8 % (13.2-15.2) 06/20/20 23:52 Plt Count 213 K/mm3 (140-440) 06/20/20 23:52 Lymph % (Auto) 31.0 % (13.4-35.0) 06/20/20 23:52 [place] % (Auto) 13.0 % (0.0-7.3) H 06/20/20 23:52 Eos % (Auto) 1.5 % (0.0-4.3) 06/20/20 23:52 Baso % (Auto) 0.3 % (0.0-1.8) 06/20/20 23:52 Lymph # (Auto) 2.2 K/mm3 (1.2-5.4) 06/20/20 23:52 [place] # (Auto) 0.9 K/mm3 (0.0-0.8) H 06/20/20 23:52 Eos # (Auto) 0.1 K/mm3 (0.0-0.4) 06/20/20 23:52 Baso # (Auto) 0.0 K/mm3 (0.0-0.1) 06/20/20 23:52 Seg Neutrophils % 54.2 % (40.0-70.0) 06/20/20 23:52 Seg Neutrophils # 3.9 K/mm3 (1.8-7.7) 06/20/20 23:52 Sodium 133 mmol/L (137-145) L 06/20/20 23:52 Potassium 4.4 mmol/L (3.6-5.0) 06/20/20 23:52 Chloride 94.9 mmol/L (98-107) L 06/20/20 23:52 Carbon Dioxide 29 mmol/L (22-30) 06/20/20 23:52 Anion Gap 14 mmol/L 06/20/20 23:52 BUN 19 mg/dL (7-17) H 06/20/20 23:52 Creatinine 0.9 mg/dL (0.6-1.2) 06/20/20 23:52 Estimated GFR > 60 ml/min 06/20/20 23:52 BUN/Creatinine Ratio 21 % 06/20/20 23:52 Glucose 159 mg/dL (65-100) H 06/20/20 23:52 POC Glucose 108 mg/dL (70-105) H 06/23/20 20:35 Hemoglobin A1c 6.4 % (4-6) H 06/20/20 23:52 Calcium 9.7 mg/dL (8.4-10.2) 06/20/20 23:52 Total Bilirubin 0.30 mg/dL (0.1-1.2) 06/20/20 23:52 AST 17 units/L (5-40) 06/20/20 23:52 ALT 13 units/L (7-56) 06/20/20 23:52 Alkaline Phosphatase 58 units/L (35-129) 06/20/20 23:52 Total Protein 6.4 g/dL (6.3-8.2) 06/20/20 23:52 Albumin 3.6 g/dL (3.9-5) L 06/20/20 23:52 Albumin/Globulin Ratio 1.3 % 06/20/20 23:52 Triglycerides 69 mg/dL (2-149) 06/20/20 23:52 Cholesterol 125 mg/dL (50-199) 06/20/20 23:52 LDL Cholesterol Direct 60 mg/dL (50-130) 06/20/20 23:52 HDL Cholesterol 55 mg/dL (40-59) 06/20/20 23:52 Cholesterol/HDL Ratio 2.27 % 06/20/20 23:52 Urine Color Yellow (Yellow) 06/20/20 Unknown Urine Turbidity Clear (Clear) 06/20/20 Unknown Urine pH 7.0 (5.0-7.0) 06/20/20 Unknown Ur Specific [place] 1.015 (1.003-1.030) 06/20/20 Unknown Urine Protein <15 mg/dl mg/dL (Negative) 06/20/20 Unknown Urine Glucose (UA) Neg mg/dL (Negative) 06/20/20 Unknown Urine Ketones Neg mg/dL (Negative) 06/20/20 Unknown Urine Blood Neg (Negative) 06/20/20 Unknown Urine Nitrite Neg (Negative) 06/20/20 Unknown Urine Bilirubin Neg (Negative) 06/20/20 Unknown Urine Urobilinogen 4.0 mg/dL (<2.0) 06/20/20 Unknown Ur Leukocyte Esterase Neg (Negative) 06/20/20 Unknown Urine WBC (Auto) < 1.0 /HPF (0.0-6.0) 06/20/20 Unknown Urine RBC (Auto) 1.0 /HPF (0.0-6.0) 06/20/20 Unknown U Epithel Cells (Auto) 4.0 /HPF (0-13.0) 06/20/20 Unknown Valproic Acid 64.1 ug/mL (50-100) 06/22/20 14:17 Core Measure Documentation - Palliative Care Palliative Care/ Comfort Measures: Not Applicable - Core Measures Any of the following diagnoses?: none Exam - Constitutional Vitals: Temp Pulse Resp BP Pulse Ox 98.5 F 60 18 129/74 99 06/23/20 22:58 06/23/20 22:58 06/23/20 22:58 06/23/20 22:58 06/23/20 22:58 General appearance: Present: no acute distress - EENT Eyes: Present: PERRL, EOM intact ENT: hearing intact, clear oral mucosa - Neck Neck: Present: supple, normal ROM - Respiratory Respiratory effort: normal Plan Activity: advance as tolerated Weight Bearing Status: Weight Bear as Tolerated Care Plan Goals: Maintain good and stable mental health Plan of Treatment: The patient should be compliant with medications, not to use drugs, and not to drink alcohol. The patient understands that if suicidal ideas, homicidal ideas or any endangering feeling arise, the patient should seek assistance including, but not limited to crisis hotline, and emergency room. Health Concerns: Hyponatremia Assessment: Schizophrenia The patient was calm and cooperative upon discharge. She denies SI/HI or hallucinations of any kind. Follow up with: PRIMARY CARE, [Primary Care Provider] - 7 Days Prescriptions: ARIPiprazole [Abilify TAB] 10 mg PO QDAY #30 tablet VALPROIC ACID Liq [DepaKENE Liq] 500 mg PO BID #1 bottle Sertraline [Zoloft] 50 mg PO DAILY #30
[2020-06-24 09:54] VITALS: BP 144/83
[2020-06-24] MEDS: SPIRONOLACTONE 25 MG TAB PO SCH (11:23)
[2020-06-24] MEDS: ARIPiprazole 10 MG TAB PO SCH (11:24)
[2020-06-24] MEDS: metFORMIN XR 500MG TAB PO SCH (11:24)
[2020-06-24] MEDS: ASPIRIN EC 81 MG TAB PO SCH (11:31)
[2020-06-24] MEDS: FUROSEMIDE 20 MG TAB PO SCH (11:31)
[2020-06-24] MEDS: FAMOTIDINE 20 MG TAB PO SCH (11:31)
[2020-06-24] MEDS: POTASSIUM CHLORIDE ER 10 MEQ TAB PO SCH (11:31)
[2020-06-24] MEDS: amLODIPine 10 MG TAB PO SCH (11:32)
[2020-06-24] MEDS: VALPROIC ACID 250 MG/5 ML ORAL LIQD PO SCH (11:34)
[2020-06-24] MEDS: SERTRALINE 50 MG TAB PO SCH (11:34)
== END 2020-06-24 15:55 | DRG 885 ==
LOC: UNDOADMIN 10:29 → 3A 10:29 → 5A 12:00
PROVIDERS: ADMIT Psychiatry & Neurology Psychiatry; ATTEND Psychiatry & Neurology Psychiatry
DX: F20.9 Schizophrenia, unspecified (principal); Z88.0 Allergy status to penicillin; Z88.8 Allergy status to other drugs, medicaments and biological substances; Z79.82 Long term (current) use of aspirin; Z79.84 Long term (current) use of oral hypoglycemic drugs; Z79.899 Other long term (current) drug therapy; E11.9 Type 2 diabetes mellitus without complications; K21.9 Gastro-esophageal reflux disease without esophagitis; I11.0 Hypertensive heart disease with heart failure; I50.9 Heart failure, unspecified; Z86.73 Personal history of transient ischemic attack (TIA), and cerebral infarction without residual deficits; E78.5 Hyperlipidemia, unspecified; E66.9 Obesity, unspecified; Z68.34 Body mass index [BMI] 34.0-34.9, adult; Z71.3 Dietary counseling and surveillance; F32.9 Major depressive disorder, single episode, unspecified
CPT/HCPCS: 36415; 80053; 80061; 80164; 81001; 82962; 83036; 85025; G0378; A9270-GY

== ENCOUNTER 2021-01-08 04:44 | Emergency (ER) | payer MEDICARE ==
[2021-01-08 06:08] LABS: Bilirubin,Urine NEG (Negative); Blood,Urine NEG (Negative); Color,Urine Straw (Yellow); Protein,Urine <15 mg/dL mg/dL (Negative); Urobilinogen,Urine < 2.0 mg/dL (<2.0); WBC,Urine < 1.0 /HPF (0.0-6.0)
[2021-01-08 06:18] LABS: HCG Qualitative,Urine Negative (Negative)
[2021-01-08 06:21] LABS: Basophils % (Auto) 0.3 % (0.0-1.8); Eosinophils # (Auto) 0.1 K/mm3 (0.0-0.4); Hematocrit 37.9 % (30.3-42.9); Hemoglobin 12.9 gm/dl (10.1-14.3); Lymphocytes # (Auto) 1.5 K/mm3 (1.2-5.4); Lymphocytes % (Auto) 23.7 % (13.4-35.0); Mean Corpuscular HGB Conc 34 % (30-34); Mean Corpuscular Volume 95 fl (79-97); Monocytes # (Auto) 0.5 K/mm3 (0.0-0.8); Monocytes % (Auto) 8.9 % (0.0-7.3); Platelet Count 254 K/mm3 (140-440); Red Blood Count 4.01 M/mm3 (3.65-5.03); Red Cell Distribution Width 15.2 % (13.2-15.2)
[2021-01-08 06:26] LABS: Amphetamine Screen,Urine Negative; Benzodiazepines Screen,Urine Negative; Cannabinoid Screen,Urine Negative; Cocaine Screen,Urine Negative; Methadone Screen,Urine Negative; Opiate Screen,Urine Negative
--- NOTE | 2021-01-08 06:28 | Emergency Department Report ---
HPI - General Chief Complaint: Abdominal Pain Time Seen by Provider: 01/08/21 06:03 - HPI HPI: 75-year-old -[place] female presents to the emergency department via EMS from [facility] saying that she is 9 months and having abdominal pain. The patient called 911 from a patient phone and facility did not know that the patient had called for EMS until they arrived at the facility. They offered to have the patient evaluated by their facility physicians, but EMS insisted that the patient be brought to the emergency department given that they were called out and she is complaining of abdominal pain. Patient does say that she has some generalized abdominal discomfort that she says has been going on for "a while", but worsened since yesterday. She denies any fever, but diarrhea, vomiting, constipation, dysuria. She has a past medical history of hypertension. She appears to have a psychiatric history of schizophrenia. The patient is adamant that she could, and is, at the age of 75. Patient says that she is staying at the [facility] facility until "my house is ready." ED Past Medical Hx - Past Medical History Hx Hypertension: Yes Hx CVA: Yes (2013?) Hx Congestive Heart Failure: Yes Hx Diabetes: Yes Hx GERD: Yes Hx Renal Disease: No Hx Arthritis: No Hx Seizures: No Hx Psychiatric Treatment: Yes (schizophrenia, depression) Hx Dementia: No - Surgical History Hx Appendectomy: No Additional Surgical History: R Lumpectomy ?yr-"it's been awhile" - Social History Smoking Status: Never Smoker Substance Use Type: None - Medications Home Medications: Home Medications Medication Instructions Recorded Confirmed Last Taken Type Omeprazole 20 mg PO HS 05/06/17 06/21/20 Unknown History Pravastatin Sodium [Pravachol] 40 mg PO HS 05/06/17 06/20/20 Unknown History traMADoL [Ultram 50 MG tab] 50 mg PO PRN 05/06/17 06/21/20 Unknown History amLODIPine 10 mg PO QDAY #30 tablet 05/08/17 06/21/20 Unknown Rx Dicyclomine [Bentyl] 20 mg PO QID PRN #20 tablet 11/14/19 06/20/20 Unknown Rx Acetaminophen [Mapap] 325 mg PO Q6HR #30 tablet 02/18/20 06/21/20 Unknown Rx Aspirin EC [Halfprin EC] 81 mg PO QDAY 06/20/20 06/20/20 Unknown History Famotidine [Acid Controller] 20 mg PO DAILY 06/20/20 06/20/20 Unknown History Furosemide [Lasix TAB] 20 mg PO QDAY 06/20/20 06/20/20 Unknown History Metformin HCl [metFORMIN ER 500 mg PO BID 06/20/20 06/20/20 Unknown History Osmotic] Potassium Chloride [K-Dur] 10 meq PO QDAY 06/20/20 06/20/20 Unknown History Spironolactone [Aldactone] 12.5 mg PO QDAY 06/20/20 06/20/20 Unknown History ARIPiprazole [Abilify TAB] 10 mg PO QDAY #30 tablet 06/24/20 Unknown Rx Sertraline [Zoloft] 50 mg PO DAILY #30 06/24/20 Unknown Rx VALPROIC ACID Liq [DepaKENE Liq] 500 mg PO BID #1 bottle 06/24/20 Unknown Rx ED Review of Systems ROS: Stated complaint: 9 MOS PREG/VAG DISCHARGE Other details as noted in HPI Comment: All other systems reviewed and negative Constitutional: denies: chills, fever Eyes: denies: eye pain, vision change ENT: denies: ear pain, throat pain Respiratory: denies: cough, shortness of breath Cardiovascular: denies: chest pain, palpitations Gastrointestinal: abdominal pain. denies: vomiting Genitourinary: denies: dysuria, hematuria Musculoskeletal: denies: back pain, arthralgia Skin: denies: rash, lesions Neurological: denies: headache, weakness Physical Exam - Physical Exam Vital Signs: Vital Signs 01/08/21 01/08/21 05:07 06:17 Temperature 98.1 F Pulse Rate 75 Respiratory 18 Rate Blood Pressure 147/70 [Right] O2 Sat by Pulse 99 98 Oximetry Physical Exam: GENERAL: The patient is well-developed well-nourished. HENT: Normocephalic. Atraumatic. Patient has moist mucous membranes. EYES: Extraocular motions are intact. NECK: Supple. Trachea is midline. CHEST/LUNGS: Clear to auscultation. There is no respiratory distress noted. HEART/CARDIOVASCULAR: Regular. There is no tachycardia. There is no murmur. ABDOMEN: Abdomen is soft, nontender. Patient has normal bowel sounds. There is no abdominal distention. SKIN: Skin is warm and dry. NEURO: The patient is awake, alert, and oriented. The patient is cooperative. Normal speech. MUSCULOSKELETAL: There is no tenderness or deformity. There is no limitation range of motion. ED Course Vital Signs 01/08/21 01/08/21 05:07 06:17 Temperature 98.1 F Pulse Rate 75 Respiratory 18 Rate Blood Pressure 147/70 [Right] O2 Sat by Pulse 99 98 Oximetry ED Medical Decision Making - Lab Data Result diagrams: 01/08/21 06:05 01/08/21 06:05 Lab Results 01/08/21 01/08/21 01/08/21 Range/Units 05:49 05:49 06:05 WBC 6.1 (4.5-11.0) K/mm3 RBC 4.01 (3.65-5.03) M/mm3 Hgb 12.9 (10.1-14.3) gm/dl Hct 37.9 (30.3-42.9) % MCV 95 (79-97) fl MCH 32 (28-32) pg MCHC 34 (30-34) % RDW 15.2 (13.2-15.2) % Plt Count 254 (140-440) K/mm3 Lymph % (Auto) 23.7 (13.4-35.0) % [place] % (Auto) 8.9 H (0.0-7.3) % Eos % (Auto) 1.0 (0.0-4.3) % Baso % (Auto) 0.3 (0.0-1.8) % Lymph # (Auto) 1.5 (1.2-5.4) K/mm3 [place] # (Auto) 0.5 (0.0-0.8) K/mm3 Eos # (Auto) 0.1 (0.0-0.4) K/mm3 Baso # (Auto) 0.0 (0.0-0.1) K/mm3 Seg Neutrophils % 66.1 (40.0-70.0) % Seg Neutrophils # 4.1 (1.8-7.7) K/mm3 Sodium (137-145) mmol/L Potassium (3.6-5.0) mmol/L Chloride (98-107) mmol/L Carbon Dioxide (22-30) mmol/L Anion Gap mmol/L BUN (7-17) mg/dL Creatinine (0.6-1.2) mg/dL Estimated GFR ml/min BUN/Creatinine Ratio % Glucose (65-100) mg/dL Calcium (8.4-10.2) mg/dL Total Bilirubin (0.1-1.2) mg/dL AST (5-40) units/L ALT (7-56) units/L Alkaline Phosphatase (35-129) units/L Total Protein (6.3-8.2) g/dL Albumin (3.9-5) g/dL Albumin/Globulin Ratio % Lipase (13-60) units/L Urine Color Straw (Yellow) Urine Turbidity Clear (Clear) Urine pH 7.0 (5.0-7.0) Ur Specific [place] 1.005 (1.003-1.030) Urine Protein <15 mg/dl (Negative) mg/dL Urine Glucose (UA) Neg (Negative) mg/dL Urine Ketones Neg (Negative) mg/dL Urine Blood Neg (Negative) Urine Nitrite Neg (Negative) Urine Bilirubin Neg (Negative) Urine Urobilinogen < 2.0 (<2.0) mg/dL Ur Leukocyte Esterase Neg (Negative) Urine WBC (Auto) < 1.0 (0.0-6.0) /HPF Urine RBC (Auto) 1.0 (0.0-6.0) /HPF U Epithel Cells (Auto) 5.0 (0-13.0) /HPF Urine HCG, Qual Negative (Negative) Urine Opiates Screen Negative Urine Methadone Screen Negative Ur Barbiturates Screen Negative Ur Phencyclidine Scrn Negative Ur Amphetamines Screen Negative U Benzodiazepines Scrn Negative Urine Cocaine Screen Negative U Marijuana (THC) Screen Negative Drugs of Abuse Note Disclamer Plasma/Serum Alcohol (0-0.07) % 01/08/21 01/08/21 Range/Units 06:05 08:12 WBC (4.5-11.0) K/mm3 RBC (3.65-5.03) M/mm3 Hgb (10.1-14.3) gm/dl Hct (30.3-42.9) % MCV (79-97) fl MCH (28-32) pg MCHC (30-34) % RDW (13.2-15.2) % Plt Count (140-440) K/mm3 Lymph % (Auto) (13.4-35.0) % [place] % (Auto) (0.0-7.3) % Eos % (Auto) (0.0-4.3) % Baso % (Auto) (0.0-1.8) % Lymph # (Auto) (1.2-5.4) K/mm3 [place] # (Auto) (0.0-0.8) K/mm3 Eos # (Auto) (0.0-0.4) K/mm3 Baso # (Auto) (0.0-0.1) K/mm3 Seg Neutrophils % (40.0-70.0) % Seg Neutrophils # (1.8-7.7) K/mm3 Sodium 131 L (137-145) mmol/L Potassium 4.6 (3.6-5.0) mmol/L Chloride 92.2 L (98-107) mmol/L Carbon Dioxide 28 (22-30) mmol/L Anion Gap 15 mmol/L BUN 12 (7-17) mg/dL Creatinine 0.8 (0.6-1.2) mg/dL Estimated GFR > 60 ml/min BUN/Creatinine Ratio 15 % Glucose 119 H (65-100) mg/dL Calcium 9.6 (8.4-10.2) mg/dL Total Bilirubin 0.40 (0.1-1.2) mg/dL AST 15 (5-40) units/L ALT 10 (7-56) units/L Alkaline Phosphatase 68 (35-129) units/L Total Protein 8.1 (6.3-8.2) g/dL Albumin 4.1 (3.9-5) g/dL Albumin/Globulin Ratio 1.0 % Lipase 34 (13-60) units/L Urine Color (Yellow) Urine Turbidity (Clear) Urine pH (5.0-7.0) Ur Specific [place] (1.003-1.030) Urine Protein (Negative) mg/dL Urine Glucose (UA) (Negative) mg/dL Urine Ketones (Negative) mg/dL Urine Blood (Negative) Urine Nitrite (Negative) Urine Bilirubin (Negative) Urine Urobilinogen (<2.0) mg/dL Ur Leukocyte Esterase (Negative) Urine WBC (Auto) (0.0-6.0) /HPF Urine RBC (Auto) (0.0-6.0) /HPF U Epithel Cells (Auto) (0-13.0) /HPF Urine HCG, Qual (Negative) Urine Opiates Screen Urine Methadone Screen Ur Barbiturates Screen Ur Phencyclidine Scrn Ur Amphetamines Screen U Benzodiazepines Scrn Urine Cocaine Screen U Marijuana (THC) Screen Drugs of Abuse Note Plasma/Serum Alcohol < 0.01 (0-0.07) % - Medical Decision Making This patient presents to the emergency department with a complaint of some abdominal discomfort and being . This is obviously impossible given the patient's 75 years of age. She does have a history of schizophrenia and appears to have acute psychosis. I'm unable to reason with the patient regarding the fact that she is not and she appears to be fixated on this. Labs have been unremarkable including CBC, metabolic panel, lipase, urinalysis, blood alcohol level, UDS. Initially I was going to obtain a CT scan of the abdomen and pelvis with the patient's complaint of abdominal discomfort. However, the patient refuses CT or x-ray imaging and only wants an ultrasound due to her alleged . The abdomen is soft, nondistended and nontoxic in appearance. The patient was then seen by the psychiatric nurse practitioner, under Dr. Gonzalez, and they agree that the patient exhibits acute psychosis and requires inpatient stabilization. A 1013 has been filled out and signed. She is medically cleared for psychiatric placement. Critical Care Time: No Critical care attestation.: If time is entered above; I have spent that time in minutes in the direct care of this critically ill patient, excluding procedure time. ED Disposition Clinical Impression: Acute psychosis Schizophrenia Qualifiers: Schizophrenia type: unspecified Qualified Code(s): F20.9 - Schizophrenia, unspecified Hypertension Qualifiers: Hypertension type: primary hypertension Qualified Code(s): I10 - Essential (primary) hypertension Disposition: [address] [place] [address] Is pt being admited?: No Condition: Stable Instructions: Abdominal Pain (ED), Hypertension (ED) Time of Disposition: 14:35
[2021-01-08 07:09] LABS: Alanine Aminotransferase 10 units/L (7-56); Albumin 4.1 g/dL (3.9-5); BUN/Creatinine Ratio 15; Blood Urea Nitrogen 12 mg/dL (7-17); Calcium 9.6 mg/dL (8.4-10.2); Hemolysis Index 6
--- NOTE | 2021-01-08 11:53 | Consultation ---
History of Present Illness - Reason for Consult Consult date: 01/08/21 Reason for consult: delusiona - History of Present Psychiatric Illness The patient was seen today. She is delusional. Her speech is nonsensical. She thinks she is . The patient says "I was and I still am." She says "I don't went too much and passed it." The patient says "my sticks his penis in me. Well I don't want to discuss it." She denies SI/HI or hallucinations. But then says "being suicidal, oh it will come back in a minute when I get this baby out." She is obsessed about being . She says "it's in there and you wouldn't believe it." PAST PSYCHIATRIC HISTORY: Diagnoses: Schizophrenia Suicide attempts or Self-harm behavior: yes Prior psychiatric hospitalizations: yes Substance Abuse history: denies Previous psychiatric medications tried: invega Outpatient treatment: Denies PAST MEDICAL HISTORY: Diabetes Family Psychiatric History: None reported or documented SOCIAL HISTORY Marital Status: Living Arrangements: [facility] Employment Status: Disabled Access to guns/weapons: Denies Education: high school History of Abuse: Denies Legal History: Denies REVIEW OF SYSTEMS Constitutional: Negative for weight loss ENT: Negative for stridor Respiratory: Negative for cough or hemoptysis All other systems reviewed and are negative MENTAL STATUS EXAMINATION General Appearance and Behavior: Age appropriate, good hygiene, not wearing appropriate clothes, good eye contact, cooperative polite with questioning. Cooperation: Participating/engaged Psychomotor Behavior: Psychomotor normal Mood: "fine" Affect and affective range: Euthymic Thought Process: Delusions Speech: Normal tone and pace Thought Content Suicidal Ideation: Denies Homicidal Ideation: Denies Hallucinations: Denies Delusions: Yes Impulse Control: Limited Insight and Judgment: Limited insight and judgment Memory: Normal Attention: Divided attention impaired Orientation: A/o x 3 Assessment and Plan (1) Schizophrenia (2) Delusional Disorder Treatment Plan 1013 Abilify 10mg po daily Trazodone 50mg po qhs Medical: per primary Disposition: Recommend acute psychiatric inpatient treatment Will follow. Thanks Case staffed with Dr. Gonzalez Medications and Allergies Allergies Allergy/AdvReac Type Severity Reaction Status Date / Time haloperidol [From Haldol] Allergy Unknown Verified 01/08/21 05:07 haloperidol lactate Allergy Unknown Verified 01/08/21 05:07 [From Haldol] Penicillins Allergy Unknown Verified 01/08/21 05:07 Home Medications Medication Instructions Recorded Confirmed Last Taken Type Omeprazole 20 mg PO HS 05/06/17 06/21/20 Unknown History Pravastatin Sodium [Pravachol] 40 mg PO HS 05/06/17 06/20/20 Unknown History traMADoL [Ultram 50 MG tab] 50 mg PO PRN 05/06/17 06/21/20 Unknown History amLODIPine 10 mg PO QDAY #30 tablet 05/08/17 06/21/20 Unknown Rx Dicyclomine [Bentyl] 20 mg PO QID PRN #20 tablet 11/14/19 06/20/20 Unknown Rx Acetaminophen [Mapap] 325 mg PO Q6HR #30 tablet 02/18/20 06/21/20 Unknown Rx Aspirin EC [Halfprin EC] 81 mg PO QDAY 06/20/20 06/20/20 Unknown History Famotidine [Acid Controller] 20 mg PO DAILY 06/20/20 06/20/20 Unknown History Furosemide [Lasix TAB] 20 mg PO QDAY 06/20/20 06/20/20 Unknown History Metformin HCl [metFORMIN ER 500 mg PO BID 06/20/20 06/20/20 Unknown History Osmotic] Potassium Chloride [K-Dur] 10 meq PO QDAY 06/20/20 06/20/20 Unknown History Spironolactone [Aldactone] 12.5 mg PO QDAY 06/20/20 06/20/20 Unknown History ARIPiprazole [Abilify TAB] 10 mg PO QDAY #30 tablet 06/24/20 Unknown Rx Sertraline [Zoloft] 50 mg PO DAILY #30 06/24/20 Unknown Rx VALPROIC ACID Liq [DepaKENE Liq] 500 mg PO BID #1 bottle 06/24/20 Unknown Rx Mental Status Exam - Vital signs Last Vital Signs Temp 98.1 F 01/08/21 05:07 Pulse 75 01/08/21 05:07 Resp 18 01/08/21 05:07 BP 178/78 01/08/21 10:01 Pulse Ox 98 01/08/21 10:01 Results Result Diagrams: 01/08/21 06:05 01/08/21 06:05 Abnormal lab results 01/08/21 01/08/21 Range/Units 06:05 06:05 [place] % (Auto) 8.9 H (0.0-7.3) % Sodium 131 L (137-145) mmol/L Chloride 92.2 L (98-107) mmol/L Glucose 119 H (65-100) mg/dL All other labs normal.
[2021-01-08] MEDS ORDERED: amLODIPine 5 MG TAB PO ONE (14:34)
--- NOTE | 2021-01-09 11:42 | Progress Note ---
Subjective - Reason for Consult Consult date: 01/09/21 Reason for consult: mental health evaluation - Chief Complaint Chief complaint: The patient was seen today. she continues to be delusional stating " I'm , I had sex with my ." REVIEW OF SYSTEMS Constitutional: Negative for weight loss ENT: Negative for stridor Respiratory: Negative for cough or hemoptysis All other systems reviewed and are negative MENTAL STATUS EXAMINATION General Appearance and Behavior: Age appropriate, good hygiene, not wearing appropriate clothes, good eye contact, cooperative polite with questioning. Cooperation: Participating/engaged Psychomotor Behavior: Psychomotor normal Mood: "fine" Affect and affective range: incongruent Thought Process: Delusions Speech: Normal tone and pace Thought Content Suicidal Ideation: Denies Homicidal Ideation: Denies Hallucinations: Denies Delusions: Yes Impulse Control: Limited Insight and Judgment: Limited insight and judgment Memory: Normal Attention: Divided attention impaired Orientation: A/o x 3 Assessment and Plan (1) Schizophrenia (2) Delusional Disorder Treatment Plan [id number] Continue Abilify 10mg po daily Continue Trazodone 50mg po qhs Medical: per primary Disposition: Recommend acute psychiatric inpatient treatment Will follow. Thanks Case staffed with Dr. Gonzalez Medications and Allergies Mental Status Exam - Vital signs Last Vital Signs Temp 98.8 F 01/09/21 08:30 Pulse 66 01/09/21 08:30 Resp 18 01/09/21 08:45 BP 117/82 01/09/21 08:30 Pulse Ox 96 01/09/21 08:45
--- NOTE | 2021-01-09 11:48 | Event Note ---
Date: 01/09/21 Patient continues to endorse the same delusions that she arrived with. Patient to continue with 1013. Please see the psychiatry progress note below. Sodium yesterday morning was 131. We will repeat this today. Patient can orally hydrate at this. If the sodium level is lower will consider IV fluids. Besides the slightly low sodium the patient is medically cleared. Sodium level 131 does not meet criteria for admission. Psychiatry Progress Note Patient Name: MARY JO GALLARDO Date of : 1945 Patient Status: Emergency Emergency Provider: EMMETTFRANCESCA Jose Date: 01/09/21 11:41 Initialization Date: 01/09/21 11:41 Subjective - Reason for Consult Consult date: 01/09/21 - Chief Complaint Chief complaint: The patient was seen today. she continues to be delusional stating " I'm , I had sex with my ." REVIEW OF SYSTEMS Constitutional: Negative for weight loss ENT: Negative for stridor Respiratory: Negative for cough or hemoptysis All other systems reviewed and are negative MENTAL STATUS EXAMINATION General Appearance and Behavior: Age appropriate, good hygiene, not wearing appropriate clothes, good eye contact, cooperative polite with questioning. Cooperation: Participating/engaged Psychomotor Behavior: Psychomotor normal Mood: "fine" Affect and affective range: incongruent Thought Process: Delusions Speech: Normal tone and pace Thought Content Suicidal Ideation: Denies Homicidal Ideation: Denies Hallucinations: Denies Delusions: Yes Impulse Control: Limited Insight and Judgment: Limited insight and judgment Memory: Normal Attention: Divided attention impaired Orientation: A/o x 3 Assessment and Plan (1) Schizophrenia (2) Delusional Disorder Treatment Plan [id number] Continue Abilify 10mg po daily Continue Trazodone 50mg po qhs Medical: per primary Disposition: Recommend acute psychiatric inpatient treatment Will follow. Thanks Case staffed with Dr. Gonzalez
[2021-01-09 14:00] LABS: BUN/Creatinine Ratio 23; Blood Urea Nitrogen 18 mg/dL (7-17); Calcium 9.5 mg/dL (8.4-10.2); Hemolysis Index 6
[2021-01-10 08:45] VITALS: BP 131/90
--- NOTE | 2021-01-10 10:20 | Progress Note ---
Subjective - Reason for Consult Consult date: 01/10/21 Reason for consult: Mental health evaluation - Chief Complaint Chief complaint: The patient was seen today. She is clearer and less confused. The patient states she feels better. She denies any current suicidal/homicidal and denies hallucinations. REVIEW OF SYSTEMS Constitutional: Negative for weight loss ENT: Negative for stridor Respiratory: Negative for cough or hemoptysis All other systems reviewed and are negative MENTAL STATUS EXAMINATION General Appearance and Behavior: Age appropriate, good hygiene, not wearing appropriate clothes, good eye contact, cooperative polite with questioning. Cooperation: Participating/engaged Psychomotor Behavior: Psychomotor normal Mood: "fine" Affect and affective range: incongruent Thought Process: goal directed Speech: Normal tone and pace Thought Content Suicidal Ideation: Denies Homicidal Ideation: Denies Hallucinations: Denies Delusions: None Impulse Control: Limited Insight and Judgment: Limited insight and judgment Memory: Normal Attention: Divided attention impaired Orientation: A/o x 3 Assessment and Plan (1) Schizophrenia (2) Delusional Disorder Treatment Plan [id number] Continue Abilify 10mg po daily Continue Trazodone 50mg po qhs Medical: per primary Disposition: Do not recommend acute psychiatric inpatient treatment. The budget engineer will provide patient with psychiatric out patient resources. Will sign off. Thanks Case staffed with Dr. Gonzalez Medications and Allergies Mental Status Exam - Vital signs Last Vital Signs Temp 98.2 F 01/10/21 08:44 Pulse 60 01/10/21 08:44 Resp 18 01/10/21 08:44 BP 131/90 01/10/21 08:44 Pulse Ox 97 01/10/21 08:44
--- NOTE | 2021-01-10 10:54 | Emergency Department Report ---
Blank Doc - Documentation Documentation: Patient had presented with suicidal thoughts. She has been seen and cleared by psychiatric services. There is no indication for psychiatric admission at this time. She will complete a care plan. Prescriptions have been written by psychiatric services. Patient was subsequently discharged.
== END 2021-01-10 17:40 | disposition home or self-care (01) ==
LOC: ED 04:44
DX: F20.9 Schizophrenia, unspecified (principal); I11.0 Hypertensive heart disease with heart failure; I50.9 Heart failure, unspecified; E11.8 Type 2 diabetes mellitus with unspecified complications; Z86.73 Personal history of transient ischemic attack (TIA), and cerebral infarction without residual deficits; Z98.890 Other specified postprocedural states; Z88.0 Allergy status to penicillin; Z88.8 Allergy status to other drugs, medicaments and biological substances; Z20.822 Contact with and (suspected) exposure to COVID-19
CPT/HCPCS: 36415; 80048; 80053; 80307; 81001; 81025; 83690; 85025; 99284; U0003; 80320; G0480

== ENCOUNTER 2021-06-13 00:59 | Emergency (ER) | payer MEDICARE ==
--- NOTE | 2021-06-13 03:59 | XRay Report ---
ABDOMEN, 2 VIEW INDICATION / CLINICAL INFORMATION: Abdominal pain. COMPARISON: None available. FINDINGS: Moderate amount retained stool is seen throughout the colon. No significant fecal impaction noted. Th e bowel gas pattern is otherwise normal. No suggestion for free air or other significant finding. IMPRESSION: Moderate amount retained stool throughout the colon suggesting constipation. Signer Name: Bridget Borjas MD Signed: 06/13/2021 3:54 AM Workstation Name: [id number]
--- NOTE | 2021-06-13 04:50 | Emergency Department Report ---
<DANILO DODGE - Last Filed: 06/13/21 12:00> ED Abdominal Pain HPI - General Chief Complaint: Abdominal Pain Stated Complaint: ABDOMINAL PAIN Time Seen by Provider: 06/13/21 02:24 - Related Data Home Medications Medication Instructions Recorded Confirmed Last Taken Omeprazole 20 mg PO HS 05/06/17 06/21/20 Unknown Pravastatin Sodium [Pravachol] 40 mg PO HS 05/06/17 06/20/20 Unknown traMADoL [Ultram 50 MG tab] 50 mg PO PRN 05/06/17 06/21/20 Unknown Aspirin EC [Halfprin EC] 81 mg PO QDAY 06/20/20 06/20/20 Unknown Famotidine [Acid Controller] 20 mg PO DAILY 06/20/20 06/20/20 Unknown Furosemide [Lasix TAB] 20 mg PO QDAY 06/20/20 06/20/20 Unknown Metformin HCl [metFORMIN ER 500 mg PO BID 06/20/20 06/20/20 Unknown Osmotic] Potassium Chloride [K-Dur] 10 meq PO QDAY 06/20/20 06/20/20 Unknown Spironolactone [Aldactone] 12.5 mg PO QDAY 06/20/20 06/20/20 Unknown Previous Rx's Medication Instructions Recorded Last Taken Type amLODIPine 10 mg PO QDAY #30 tablet 05/08/17 01/08/21 10:00 Rx Dicyclomine [Bentyl] 20 mg PO QID PRN #20 tablet 11/14/19 Unknown Rx Acetaminophen [Mapap] 325 mg PO Q6HR #30 tablet 02/18/20 Unknown Rx ARIPiprazole [Abilify TAB] 10 mg PO QDAY #30 tablet 06/24/20 Unknown Rx Sertraline [Zoloft] 50 mg PO DAILY #30 06/24/20 Unknown Rx VALPROIC ACID Liq [DepaKENE Liq] 500 mg PO BID #1 bottle 06/24/20 Unknown Rx ARIPiprazole [Abilify] 10 mg PO DAILY 30 Days #30 tab 01/10/21 Unknown Rx traZODone [Desyrel] 50 mg PO QHS 30 Days #30 tab 01/10/21 Unknown Rx Docusate Sodium [Colace] 100 mg PO BID PRN #60 capsule 06/13/21 Unknown Rx Ketorolac [Toradol] 10 mg PO Q6H PRN #14 tab 06/13/21 Unknown Rx Allergies Allergy/AdvReac Type Severity Reaction Status Date / Time haloperidol [From Haldol] Allergy Unknown Verified 06/13/21 01:03 haloperidol lactate Allergy Unknown Verified 06/13/21 01:03 [From Haldol] Penicillins Allergy Unknown Verified 06/13/21 01:03 ED Past Medical Hx - Medications Home Medications: Home Medications Medication Instructions Recorded Confirmed Last Taken Type Omeprazole 20 mg PO HS 05/06/17 06/21/20 Unknown History Pravastatin Sodium [Pravachol] 40 mg PO HS 05/06/17 06/20/20 Unknown History traMADoL [Ultram 50 MG tab] 50 mg PO PRN 05/06/17 06/21/20 Unknown History amLODIPine 10 mg PO QDAY #30 tablet 05/08/17 06/21/20 01/08/21 10:00 Rx Dicyclomine [Bentyl] 20 mg PO QID PRN #20 tablet 11/14/19 06/20/20 Unknown Rx Acetaminophen [Mapap] 325 mg PO Q6HR #30 tablet 02/18/20 06/21/20 Unknown Rx Aspirin EC [Halfprin EC] 81 mg PO QDAY 06/20/20 06/20/20 Unknown History Famotidine [Acid Controller] 20 mg PO DAILY 06/20/20 06/20/20 Unknown History Furosemide [Lasix TAB] 20 mg PO QDAY 06/20/20 06/20/20 Unknown History Metformin HCl [metFORMIN ER 500 mg PO BID 06/20/20 06/20/20 Unknown History Osmotic] Potassium Chloride [K-Dur] 10 meq PO QDAY 06/20/20 06/20/20 Unknown History Spironolactone [Aldactone] 12.5 mg PO QDAY 06/20/20 06/20/20 Unknown History ARIPiprazole [Abilify TAB] 10 mg PO QDAY #30 tablet 06/24/20 Unknown Rx Sertraline [Zoloft] 50 mg PO DAILY #30 06/24/20 Unknown Rx VALPROIC ACID Liq [DepaKENE Liq] 500 mg PO BID #1 bottle 06/24/20 Unknown Rx ARIPiprazole [Abilify] 10 mg PO DAILY 30 Days #30 tab 01/10/21 Unknown Rx traZODone [Desyrel] 50 mg PO QHS 30 Days #30 tab 01/10/21 Unknown Rx Docusate Sodium [Colace] 100 mg PO BID PRN #60 capsule 06/13/21 Unknown Rx Ketorolac [Toradol] 10 mg PO Q6H PRN #14 tab 06/13/21 Unknown Rx ED Medical Decision Making - Lab Data Result diagrams: 06/13/21 09:49 06/13/21 09:49 - Medical Decision Making Patient is 76 years old female with history of schizophrenia. Patient brought to the emergency room last night for evaluation of diffuse abdominal pain and back pain. Patient evaluated by Dr. Allen and diagnosed with constipation and discharged back to the halfway. Just prior to leaving the facility patient stated that her pain is not improving and ask for evaluation. Patient is alert, oriented x3 no acute distress. Patient is complaining of diffuse abdominal pain with no radiation. She denied any nausea or vomiting. No fever or chills. Patient stated that she had history of constipation but she took milk of magnesia like 2 or 3 days ago. She stated that she is not constipated now. Patient denied any chest pain or shortness of breath. I reviewed patient medical records from last night patient abdominal x-ray showed constipation. Urinalysis is negative. I order labs and patient given Tylenol for pain. Labs reviewed and is unremarkable. Patient stated that she is feeling better after Tylenol. Patient advised to follow-up with her primary care physician in the next 2 to 3 days and to return to the ER if she develop any new symptoms. ED Disposition Clinical Impression: Constipation by delayed colonic transit Abdominal pain Qualifiers: Abdominal location: upper abdomen, unspecified Qualified Code(s): R10.10 - Upper abdominal pain, unspecified Disposition: HOME / SELF CARE / HOMELESS Condition: Stable Instructions: Chronic Constipation, Abdominal Pain, Adult, [id number], Abdominal Pain (ED) Prescriptions: Docusate Sodium [Colace] 100 mg PO BID PRN #60 capsule PRN Reason: Constipation Ketorolac [Toradol] 10 mg PO Q6H PRN #14 tab PRN Reason: Pain Referrals: BARTOLOME EID MD [Primary Care Provider] - 3-5 Days <CRISSY ALLEN - Last Filed: 06/13/21 17:11> ED Abdominal Pain HPI - General Source: patient, EMS Mode of arrival: Stretcher Limitations: No Limitations - History of Present Illness Initial Comments: This patient presents to the emergency department for evaluation of abdominal pain. She admits to a history of constipation. She states the pain is i ntermittent and sharp when it occurs. The pain does not radiate to any other part of the body. There is no associated fever chills nausea or vomiting. The patient states that prior to arrival she did not have any frequency of urination. The patient's medical history is positive for schizophrenia. She has a history of GERD for which she is taking famotidine. -: Gradual, week(s) (1) Location: epigastric Radiation: none Migration to: no migration Severity scale (0 -10): 0 Quality: cramping Consistency: intermittent Improves With: nothing Worsens With: nothing Context: other (History of constipation) Associated Symptoms: constipation. denies: nausea, vomiting, diarrhea, fever, hematemesis, hematochezia, melena ED Review of Systems ROS: Stated complaint: ABDOMINAL PAIN Other details as noted in HPI Respiratory: no symptoms reported, wheezing, other Cardiovascular: denies: chest pain, palpitations Endocrine: no symptoms reported Gastrointestinal: abdominal pain. denies: constipation, hematemesis Genitourinary: frequency. denies: urgency, dysuria, hematuria Skin: denies: rash Neurological: denies: headache, weakness Psychiatric: denies: anxiety, depression, auditory hallucinations, visual hallucinations, suicidal thoughts Hematological/Lymphatic: denies: easy bleeding ED Past Medical Hx - Past Medical History Previous Medical History?: Yes Hx Hypertension: Yes Hx CVA: Yes (2013?) Hx Congestive Heart Failure: Yes Hx Diabetes: Yes Hx GERD: Yes Hx Renal Disease: No Hx Arthritis: No Hx Seizures: No Hx Psychiatric Treatment: Yes (schizophrenia, depression) Hx Dementia: No - Surgical History Past Surgical History?: Yes Hx Appendectomy: No Additional Surgical History: R Lumpectomy ?yr-"it's been awhile" - Social History Smoking Status: Never Smoker Substance Use Type: None ED Physical Exam - General Limitations: No Limitations General appearance: alert, in no apparent distress - Head Head exam: Present: atraumatic, normocephalic - Eye Eye exam: Present: normal appearance - ENT ENT exam: Present: mucous membranes moist - Neck Neck exam: Present: normal inspection - Respiratory Respiratory exam: Present: normal lung sounds bilaterally. Absent: respiratory distress - Cardiovascular Cardiovascular Exam: Present: regular rate, normal rhythm - GI/Abdominal GI/Abdominal exam: Present: soft, tenderness (There is mild tenderness to palpation of the upper abdomen). Absent: distended, guarding, rebound, rigid - Rectal Rectal exam: Present: deferred - Extremities Exam Extremities exam: Present: normal inspection - Back Exam Back exam: Present: normal inspection - Neurological Exam Neurological exam: Present: alert, oriented X3 - Psychiatric Psychiatric exam: Present: normal affect, normal mood - Skin Skin exam: Present: warm, dry, intact, normal color. Absent: rash ED Course Vital Signs 06/13/21 06/13/21 06/13/21 01:02 03:08 05:43 Temperature 97.9 F 98.2 F 98.6 F Pulse Rate 72 89 88 Respiratory 18 20 20 Rate Blood Pressure 129/71 Blood Pressure 164/59 162/68 [Left] O2 Sat by Pulse 98 98 98 Oximetry ED Medical Decision Making - Lab Data Result diagrams: 06/13/21 09:49 06/13/21 09:49 The patient's urinalysis was reviewed and it was noted that there was no evidence of urinary tract infection Critical care attestation.: If time is entered above; I have spent that time in minutes in the direct care of this critically ill patient, excluding procedure time. ED Disposition Is pt being admited?: No Does the pt Need Aspirin: No
[2021-06-13 05:47] LABS: Bilirubin,Urine NEG (Negative); Blood,Urine NEG (Negative); Color,Urine Yellow (Yellow); Protein,Urine <15 mg/dL mg/dL (Negative); Urobilinogen,Urine < 2.0 mg/dL (<2.0)
[2021-06-13 05:57] LABS: WBC,Urine < 1.0 /HPF (0.0-6.0)
[2021-06-13] MEDS ORDERED: ACETAMINOPHEN 500 MG TAB PO ONE (09:37)
[2021-06-13 10:03] LABS: Basophils # (Auto) 0.1 K/mm3 (0.0-0.1); Basophils % (Auto) 0.8 % (0.0-1.8); Eosinophils # (Auto) 0.1 K/mm3 (0.0-0.4); Eosinophils % (Auto) 1.9 % (0.0-4.3); Hematocrit 37.6 % (30.3-42.9); Hemoglobin 12.5 gm/dl (10.1-14.3); Lymphocytes # (Auto) 2.4 K/mm3 (1.2-5.4); Mean Corpuscular HGB Conc 33 % (30-34); Mean Corpuscular Volume 91 fl (79-97); Monocytes # (Auto) 0.5 K/mm3 (0.0-0.8); Monocytes % (Auto) 7.8 % (0.0-7.3); Platelet Count 250 K/mm3 (140-440); Red Blood Count 4.14 M/mm3 (3.65-5.03); Red Cell Distribution Width 15.6 % (13.2-15.2)
[2021-06-13 10:25] LABS: Alanine Aminotransferase 10 units/L (7-56); Albumin 4.2 g/dL (3.9-5); BUN/Creatinine Ratio 24; Blood Urea Nitrogen 22 mg/dL (7-17); Calcium 9.8 mg/dL (8.4-10.2); Hemolysis Index 9
[2021-06-13 10:33] LABS: Bilirubin,Direct < 0.2 mg/dL (0-0.2)
[2021-06-13 19:06] VITALS: BP 138/66
== END 2021-06-13 19:05 | disposition home or self-care (01) ==
LOC: ED 00:59
DX: K59.01 Slow transit constipation (principal); R10.9 Unspecified abdominal pain; I10 Essential (primary) hypertension; E11.9 Type 2 diabetes mellitus without complications; Z88.8 Allergy status to other drugs, medicaments and biological substances; Z88.0 Allergy status to penicillin
CPT/HCPCS: 36415; 74019; 80048; 80076; 81001; 83690; 85025; 99284